=== PATIENT | male | born 1945 | race Caucasian/White ===

== ENCOUNTER → 2018-03-15 08:24 | Outpatient (CLI) | payer MEDICARE, OTHER, SELFPAY ==
[2018-03-15 09:11] LABS: Add Manual Diff / Slide Review NO; Basophils Percent Auto 0.6 % (0-2); Eosinophils Percent Auto 4.6 % (2-4); Hematocrit 40.9 % (41-53); Hemoglobin 14.3 g/dL (13.5-17.5); Lymphocytes Percent Auto 28.1 % (25-40); Mean Corpuscular Hemoglobin 31.2 PG (26-34); Mean Corpuscular Volume 89.3 fL (80-100); Monocytes Percent Auto 7.4 % (3-14); Neutrophils Absolute Auto 3700 /uL (3000-5900); Neutrophils Percent Auto 59.3 % (50-75); Platelet Count 197 X10^3/uL (150-400); Red Blood Cell Count 4.58 X10^6/uL (4.5-5.9); Red Cell Distribution Width 13.3 % (11.6-14.8); White Blood Cell Count 6.2 X10^3/uL (4.5-11.0)
[2018-03-15 09:55] LABS: Alanine Aminotransferase 28 IU/L (21-72); Albumin Globulin Ratio 1.5 (1.0-2.8); Alkaline Phosphatase 67 U/L (38-126); Aspartate Aminotransferase 23 IU/L (17-59); BUN Creatinine Ratio 26.3 (6-22); Bilirubin Total 0.4 mg/dL (0.2-1.3); Calcium 9.3 mg/dL (8.4-10.2); Cholesterol 188 mg/dL (140-199); Estimated Glomerular Filt Rate > 60.0 mL/min (>60); Globulin 2.7 g/dL (1.7-4.1); Glucose 93 mg/dL (80-110); HDL Cholesterol 47 mg/dL (40-60); HEMOLYSIS < 15 (0-50); LDL Cholesterol Calculated 106 mg/dL (<100); Potassium 4.5 mmol/L (3.4-5.1); Sodium 144 mmol/L (137-145); Total Protein 6.7 g/dL (6.3-8.2); Triglycerides 177 mg/dL (35-150)
[2018-03-15 10:22] LABS: TSH w/ Reflex to FT4 2.17 uIU/mL (0.47-4.68)
[2018-03-20 19:17] LABS: Testosterone Free 25.8 pg/mL (30.0-135.0); Testosterone Total 205 ng/dL (250-1100)
== END ==
PROVIDERS: PCP Family Medicine; Visit Provider Family Medicine
DX: R53.83 Other fatigue (principal); E78.1 Pure hyperglyceridemia
CPT/HCPCS: 36415; 80053; 80061; 84402; 84403; 84443; 85025

== ENCOUNTER → 2018-04-12 12:12 | Outpatient (CLI) | payer MEDICARE, OTHER, SELFPAY ==
[2018-04-17 00:09] LABS: Testosterone Total 184 ng/dL (250-1100)
== END ==
PROVIDERS: PCP Family Medicine; Visit Provider Family Medicine
DX: R79.89 Other specified abnormal findings of blood chemistry (principal); R68.82 Decreased libido; R53.83 Other fatigue
CPT/HCPCS: 36415; 84402; 84403

== ENCOUNTER → 2019-01-05 14:27 | Outpatient (CLI) | payer MEDICARE, OTHER, SELFPAY ==
[2019-01-05 15:17] LABS: Add Manual Diff / Slide Review NO; Basophils Absolute Auto 0 /uL (0-100); Basophils Percent Auto 0.4 % (0-2); Eosinophils Absolute Auto 200 /uL (0-450); Eosinophils Percent Auto 2.3 % (2-4); Hematocrit 41.4 % (41-53); Hemoglobin 13.9 g/dL (13.5-17.5); Lymphocytes Absolute Auto 1500 /uL (1100-4500); Lymphocytes Percent Auto 19.1 % (25-40); Mean Corpuscular HGB Conc 33.5 % (30-36); Mean Corpuscular Hemoglobin 30.8 PG (26-34); Monocytes Absolute Auto 600 /uL (0-900); Neutrophils Absolute Auto 5600 /uL (1500-7000); Neutrophils Percent Auto 70.2 % (50-75); Platelet Count 216 X10^3/uL (150-400); Red Cell Distribution Width 12.9 % (11.6-14.8)
[2019-01-05 16:15] LABS: Alanine Aminotransferase 42 IU/L (21-72); Albumin 4.1 g/dL (3.5-5.0); Albumin Globulin Ratio 1.8 (1.0-2.8); Alkaline Phosphatase 74 U/L (38-126); Aspartate Aminotransferase 28 IU/L (17-59); Bilirubin Total 0.3 mg/dL (0.2-1.3); Blood Urea Nitrogen 23 mg/dL (9-20); Calcium 9.1 mg/dL (8.4-10.2); Carbon Dioxide 26 mmol/L (22-32); Chloride 103 mmol/L (98-107); Cholesterol 103 mg/dL (140-199); Estimated Glomerular Filt Rate > 60.0 mL/min (>60); Globulin 2.3 g/dL (1.7-4.1); Glucose 95 mg/dL (80-110); HDL Cholesterol 50 mg/dL (40-60); HEMOLYSIS < 15 (0-50); LDL Cholesterol Calculated 26 mg/dL (<100); Potassium 4.6 mmol/L (3.4-5.1); Sodium 139 mmol/L (137-145); Total Protein 6.4 g/dL (6.3-8.2); Triglycerides 135 mg/dL (35-150)
[2019-01-05 16:48] LABS: Prostate Specific Antigen Scrn 2.99 ng/mL (0.1-4.0)
[2019-01-05 17:02] LABS: Appearance Urine UA CLEAR; Bilirubin Urine UA NEGATIVE (NEGATIVE); Color Urine UA YELLOW; Glucose Urine UA NEGATIVE (Negative); Ketones Urine UA NEGATIVE (NEGATIVE); Leukocyte Esterase Urine UA NEGATIVE (NEGATIVE); Nitrite Urine UA NEGATIVE (Negative); Occult Blood Urine UA NEGATIVE (Negative); Protein Urine UA NEGATIVE (Negative); Urobilinogen Urine UA 0.2 E.U./dL (0.2)
== END ==
PROVIDERS: Visit Provider Family Medicine
DX: I10 Essential (primary) hypertension (principal); R79.89 Other specified abnormal findings of blood chemistry; Z51.81 Encounter for therapeutic drug level monitoring; Z95.5 Presence of coronary angioplasty implant and graft; Z12.5 Encounter for screening for malignant neoplasm of prostate
CPT/HCPCS: 36415; 80053; 80061; 81003; 84403; 84443; 85025; G0103

== ENCOUNTER → 2019-07-21 16:14 | Outpatient (ROUT) | payer MEDICARE, OTHER, SELFPAY ==
[2019-07-21 16:45] LABS: Prolactin 7.7 ng/mL (3.7-17.9)
== END ==
PROVIDERS: Visit Provider Internal Medicine
DX: E29.1 Testicular hypofunction (principal); Z12.5 Encounter for screening for malignant neoplasm of prostate
CPT/HCPCS: 84146; 84153; 84403; G0103

== ENCOUNTER → 2019-12-17 11:07 | Outpatient (CLI) | payer MEDICARE, OTHER, SELFPAY ==
--- NOTE | 2019-12-17 11:09 | DI.RAD.S_ITS ---
PROCEDURE: XR CHEST 2V INDICATIONS: cough x2 weeks, h/o CAD, r/o pneumonia/CHF TECHNIQUE: 2 views of the chest were acquired. COMPARISON: [facility], , CHEST 2 VIEW, 03/05/2016, 9:47. FINDINGS: Surgical changes and devices: None. Lungs and pleura: Linear areas of consolidation at the bilateral lung bases probably represent atelectasis. No convincing pulmonary consolidation is evident. No pleural effusions or pneumothorax. Mediastinum: Mediastinal contours are normal. Heart size is normal. Bones and chest wall: No suspicious bony abnormalities. Soft tissues appear unremarkable. IMPRESSION: Probable bibasilar atelectasis/scarring. No convincing pneumonia. Dictated by: Gil Danielle M.D. on 12/17/2019 at 10:29 Approved by: Gil Danielle M.D. on 12/17/2019 at 10:29
== END ==
PROVIDERS: Referring Provider Physician Assistant; Visit Provider Physician Assistant
DX: R05 Cough (principal)
CPT/HCPCS: 71046

== ENCOUNTER → 2020-02-22 14:23 | Outpatient (CLI) | payer MEDICARE, OTHER, SELFPAY ==
--- NOTE | 2020-02-22 14:29 | DI.RAD.S_ITS ---
PROCEDURE: XR CHEST 2V INDICATIONS: SHORTNESS OF BREATH TECHNIQUE: 2 views of the chest were acquired. COMPARISON: [facility], CR, XR CHEST 1VW (PORTABLE), 04/06/2016, 14:28. [facility], CR, CHEST 2 VIEW, 03/05/2016, 9:47. [facility], CR, XR CHEST 2V, 12/17/2019, 11:03. FINDINGS: Surgical changes and devices: None. Lungs and pleura: Lungs are clear. No pleural effusions or pneumothorax. Right hemidiaphragm eventration. Mediastinum: Mediastinal contours are normal. Heart size is normal. Bones and chest wall: No suspicious bony abnormalities. Soft tissues appear unremarkable. IMPRESSION: No acute cardiopulmonary disease. Dictated by: Terry Rosas M.D. on 02/22/2020 at 15:12 Approved by: Terry Rosas M.D. on 02/22/2020 at 15:14
== END ==
PROVIDERS: PCP Internal Medicine; Referring Provider Student in an Organized Health Care Education/Training Program; Visit Provider Student in an Organized Health Care Education/Training Program
DX: J20.9 Acute bronchitis, unspecified (principal); R06.02 Shortness of breath
CPT/HCPCS: 71046

== ENCOUNTER → 2020-05-03 18:52 | Outpatient (ROUT) | payer MEDICARE, OTHER, SELFPAY ==
[2020-05-03 19:08] LABS: Aspartate Aminotransferase 53 IU/L (17-59); BUN Creatinine Ratio 16.7 (6-22); Blood Urea Nitrogen 18 mg/dL (9-20); Calcium 9.1 mg/dL (8.4-10.2); Carbon Dioxide 25 mmol/L (22-32); Chloride 105 mmol/L (98-107); Cholesterol 121 mg/dL (140-199); Estimated Glomerular Filt Rate > 60.0 mL/min (>60); Glucose 92 mg/dL (80-110); HDL Cholesterol 53 mg/dL (40-60); HEMOLYSIS 23 (0-50); LDL Cholesterol Calculated 9 mg/dL (<100); Potassium 4.4 mmol/L (3.4-5.1); Sodium 138 mmol/L (137-145); Triglycerides 294 mg/dL (35-150)
[2020-05-03 19:09] LABS: Hemoglobin A1C% w Est Avg Glu 5.1 % (4.0-6.0)
[2020-05-03 19:38] LABS: Prostate Specific Antigen 3.42 ng/mL (0.10-4.00)
== END ==
PROVIDERS: PCP Internal Medicine; Visit Provider Internal Medicine
DX: I10 Essential (primary) hypertension (principal); E78.2 Mixed hyperlipidemia; R73.01 Impaired fasting glucose; E29.1 Testicular hypofunction
CPT/HCPCS: 80048; 80061; 83036; 84153; 84450

== ENCOUNTER → 2020-07-27 09:48 | Outpatient (CLI) | payer MEDICARE, OTHER, SELFPAY ==
[2020-07-28 22:36] LABS: COVID19 Sendout Not Detected (Not Detect)
== END ==
PROVIDERS: PCP Internal Medicine; Visit Provider Physician Assistant
DX: Z11.59 Encounter for screening for other viral diseases (principal)
CPT/HCPCS: 87635

== ENCOUNTER 2020-07-30 06:59 | Day surgery (SDC) | payer MEDICARE, OTHER, SELFPAY ==
[2020-07-30] MEDS: PROPARACAINE 0.5% OPHTH SOL 2 DROPS EYE-OP (07:34)
[2020-07-30] MEDS: CATARACT EYE COMPOUND (10 DROPS/SYRINGE) 3 DROPS EYE-OP (07:35)
[2020-07-30 07:37] VITALS: BP 146/83; PULSE 72; RESP 20; TEMP 36.7; O2SAT 98; BMI 30.3
--- NOTE | 2020-07-30 08:09 | P.OP_ITS ---
Operative Date/Time/Diagnoses Pre-op diagnosis: Nuclear Cataract Left eye Post-op diagnosis: same Procedure & Clinicians Same procedure as scheduled: Yes Surgeon: Stef Miller Anesthesia Type: MAC +/- and Sedation Operative Notes Procedure in detail: Patient brought to the operating suite. Tetracaine drops placed in the left eye. Patient was prepped and draped in sterile manner. Wire lid speculum was placed in the eye. Betadine drops were placed on the eye. This was irrigated. Lidocaine jelly was placed on the eye. A paracentesis port was created with a side-port blade. 0.1 mL 1% preservative free lidocaine was injected into the anterior chamber. The anterior chamber was deepened with viscoelastic. 2.6 mm keratome was used to create a temporal clear corneal incision. Cystotome and Utrata forceps were used to create continuous tear capsulorrhexis. Balanced salt solution was used to hydro dissect the nucleus. The phacoemulsification handpiece was inserted and the nucleus was removed using the stop and chop technique. The irrigation aspiration handpiece was inserted and the remaining cortex was removed. The iris was floppy and miotic. Anteri or chamber was deepened with viscoelastic. An Calix ZCB00 intraocular lens with a power of 20.5 was injected into the capsular bag. Irrigation aspiration handpiece was inserted and the remaining viscoelastic was removed. Incision was hydrated with balanced salt solution and found to be leak free with pressure with Weck-Angelica sponges. 0.1 mL Vigamox injected anterior chamber. 0.3 mL Kenalog 10 mg was injected subconjunctivally. Lid speculum was removed. The patient left the operating room in excellent condition. Complications: none Post-operative Condition: stable Disposition: same day surgery
--- NOTE | 2020-07-30 08:09 | PM.PREOP ---
Pre-operative Note Interval Note History & Physical reviewed/Exam performed by Physician: Yes Changes to H&P: No
[2020-07-30] MEDS: TRIAMCINOLONE 50 MG/5 ML VIAL INJ (08:42)
[2020-07-30] MEDS: PHENYLEPHRINE/LIDOCAINE VIAL (OR) 0.2 ML EYE-OP (08:42)
[2020-07-30] MEDS: MOXIFLOXACIN INJ 5 MG/ML VIAL EYE-OP (08:42)
[2020-07-30] MEDS: TETRACAINE 0.5% OPHTH DROPS 4 ML 2 DROPS EYE-OP (08:43)
[2020-07-30] MEDS: LIDOCAINE JELLY 2% 5 ML 1 APPLIC TOP (08:43)
[2020-07-30] MEDS: CHONDROIDTIN/SOD HYALURONATE 1.05 ML SYRINGE INTRAOCULA (08:43)
[2020-07-30] MEDS: BALANCED SALT IRRIG SOLN NO.2 500 ML, EPINEPHrine 1 MG IRR (08:43)
[2020-07-30 09:04] VITALS: BP 138/75; PULSE 67; RESP 16; TEMP 36.2; O2SAT 97
== END 2020-07-30 09:20 | disposition home or self-care (01) ==
LOC: OR 07:01
PROVIDERS: PCP Internal Medicine; Referring Provider Internal Medicine; Visit Provider Ophthalmology
PROC: (CPT 66984; principal; 2020-07-30 08:15)
DX: H25.12 Age-related nuclear cataract, left eye (principal); I10 Essential (primary) hypertension
CPT/HCPCS: 66984; J0171; J2250; J3010; J3301

== ENCOUNTER → 2020-08-10 09:32 | Outpatient (CLI) | payer MEDICARE, OTHER, SELFPAY ==
[2020-08-12 05:59] LABS: COVID19 Sendout Not Detected (Not Detect)
== END ==
PROVIDERS: PCP Internal Medicine; Visit Provider Physician Assistant
DX: Z01.812 Encounter for preprocedural laboratory examination (principal)
CPT/HCPCS: 87635

== ENCOUNTER 2020-08-13 07:56 | Day surgery (SDC) | payer MEDICARE, OTHER, SELFPAY ==
[2020-08-13] MEDS: PROPARACAINE 0.5% OPHTH SOL 2 DROPS EYE-OP (09:11)
[2020-08-13 09:15] VITALS: BP 149/74; PULSE 67; RESP 14; TEMP 36.4; O2SAT 98
[2020-08-13] MEDS: CATARACT EYE COMPOUND (10 DROPS/SYRINGE) 3 DROPS EYE-OP (09:16)
[2020-08-13 09:17] VITALS: BMI 33.3
--- NOTE | 2020-08-13 10:32 | PM.PREOP ---
Pre-operative Note Interval Note History & Physical reviewed/Exam performed by Physician: Yes Changes to H&P: No
--- NOTE | 2020-08-13 10:32 | PM.OP.1 ---
Operative Date/Time/Diagnoses Pre-op diagnosis: Nuclear cataract right eye Procedure & Clinicians Procedure: Cataract Surgery Same procedure as scheduled: Yes Surgeon: Stef Miller Anesthesia Type: MAC +/- and Sedation Operative Notes Procedure in detail: Patient brought to the operating suite. Tetracaine drops placed in the right eye. Patient was prepped and draped in sterile manner. Wire lid speculum was placed in the eye. Betadine drops were placed on the eye. This was irrigated. Lidocaine jelly was placed on the eye. A paracentesis port was created with a side-port blade. 0.1 mL 1% preservative free lidocaine was injected into the anterior chamber. The anterior chamber was deepened with viscoelastic. 2.6 mm keratome was used to create a temporal clear corneal incision. Cystotome and Utrata forceps were used to create continuous tear capsulorrhexis. Balanced salt solution was used to hydro dissect the nucleus. The phacoemulsification handpiece was inserted and the nucleus was removed using the stop and chop technique. The irrigation aspiration handpiece was inserted and the remaining cortex was removed. Anterior chamber was deepened with viscoelastic. An Calix ZCB00 intraocular lens with a power of 20.0 was injected into the capsular bag. Irrigation aspiration handpiece was inserted and the remaining viscoelastic was removed. Incision was hydrated with balanced salt solution and found to be leak free with pressure with Weck-Angelica sponges. 0.1 mL Vigamox injected anterior chamber. 0.3 mL Kenalog 10 mg was injected subconjunctivally. Lid speculum was removed. The patient left the operating room in excellent condition. Complications: none Post-operative Condition: stable Disposition: same day surgery
[2020-08-13] MEDS: MOXIFLOXACIN INJ 5 MG/ML VIAL EYE-OP (11:01)
[2020-08-13] MEDS: PHENYLEPHRINE/LIDOCAINE VIAL (OR) 0.2 ML EYE-OP (11:01)
[2020-08-13] MEDS: TRIAMCINOLONE 50 MG/5 ML VIAL INJ (11:02)
[2020-08-13] MEDS: BALANCED SALT IRRIG SOLN NO.2 500 ML, EPINEPHrine 1 MG IRR (11:02)
[2020-08-13] MEDS: CHONDROIDTIN/SOD HYALURONATE 1.05 ML SYRINGE INTRAOCULA (11:02)
[2020-08-13] MEDS: LIDOCAINE JELLY 2% 5 ML 1 APPLIC TOP (11:02)
[2020-08-13] MEDS: TETRACAINE 0.5% OPHTH DROPS 4 ML 2 DROPS EYE-OP (11:02)
[2020-08-13 11:14] VITALS: BP 130/78; PULSE 68; RESP 24; TEMP 36.6; O2SAT 97
== END 2020-08-13 11:25 | disposition home or self-care (01) ==
PROVIDERS: PCP Internal Medicine; Referring Provider Internal Medicine; Visit Provider Ophthalmology
PROC: (CPT 66984; principal; 2020-08-13 09:45)
DX: H25.11 Age-related nuclear cataract, right eye (principal); I10 Essential (primary) hypertension
CPT/HCPCS: 66984; J0171; J2250; J3301

== ENCOUNTER → 2020-10-15 19:40 | Outpatient (ROUT) | payer MEDICARE, OTHER, SELFPAY ==
[2020-10-15 19:53] LABS: Add Manual Diff / Slide Review NO; Basophils Absolute Auto 0 /uL (0-100); Basophils Percent Auto 0.7 % (0-2); Eosinophils Absolute Auto 300 /uL (0-450); Hematocrit 44.5 % (41-53); Hemoglobin 14.9 g/dL (13.5-17.5); Lymphocytes Absolute Auto 1700 /uL (1100-4500); Lymphocytes Percent Auto 26.6 % (25-40); Mean Corpuscular HGB Conc 33.4 % (30-36); Mean Corpuscular Hemoglobin 31.5 PG (26-34); Mean Corpuscular Volume 94.3 fL (80-100); Monocytes Absolute Auto 700 /uL (0-900); Monocytes Percent Auto 10.5 % (3-14); Neutrophils Absolute Auto 3700 /uL (1500-7000); Neutrophils Percent Auto 58.2 % (50-75); Platelet Count 225 X10^3/uL (150-400); Red Blood Cell Count 4.72 X10^6/uL (4.5-5.9); Red Cell Distribution Width 12.9 % (11.6-14.8); White Blood Cell Count 6.4 X10^3/uL (4.5-11.0)
[2020-10-15 20:20] LABS: BUN Creatinine Ratio 24.4 (6-22); Blood Urea Nitrogen 22 mg/dL (9-20); Calcium 9.3 mg/dL (8.4-10.2); Carbon Dioxide 29 mmol/L (22-32); Chloride 104 mmol/L (98-107); Estimated Glomerular Filt Rate > 60.0 mL/min (>60); Glucose 101 mg/dL (80-110); HEMOLYSIS < 15 (0-50); Potassium 4.7 mmol/L (3.4-5.1); Sodium 137 mmol/L (137-145)
[2020-10-15 20:33] LABS: TSH w/ Reflex to FT4 2.91 uIU/mL (0.47-4.68)
[2020-10-15 20:46] LABS: Prostate Specific Antigen 2.85 ng/mL (0.10-4.00)
[2020-10-15 20:48] LABS: Testosterone 34.5 ng/dL (71.8-623)
== END ==
PROVIDERS: PCP Internal Medicine; Visit Provider Internal Medicine
DX: I10 Essential (primary) hypertension (principal); E29.1 Testicular hypofunction; N40.1 Benign prostatic hyperplasia with lower urinary tract symptoms
CPT/HCPCS: 80048; 84153; 84403; 84443; 85025

== ENCOUNTER → 2021-01-13 12:49 | Outpatient (CLI) | payer MEDICARE, OTHER, SELFPAY ==
--- NOTE | 2021-01-13 | DI.RAD.S_ITS ---
PROCEDURE: XR HIP W PEL IF DONE LT 2V INDICATIONS: LEFT HIP PAIN TECHNIQUE: AP pelvis with lateral view(s) of the left hip(s). COMPARISON: None. FINDINGS: Bones: No fractures or dislocations. There is symmetric mild hip joint space narrowing. Pelvic ring appears intact. No suspicious bony lesions. Soft tissues: The visualized bowel gas pattern is normal. No suspicious soft tissue calcifications. 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 No prior trauma found. Source of asymmetric symptoms is not seen Dictated by: Yony Hyman M.D. on 01/13/2021 at 13:52 Approved by: Yony Hyman M.D. on 01/13/2021 at 13:52
== END ==
PROVIDERS: PCP Internal Medicine; Referring Provider Internal Medicine; Visit Provider Internal Medicine
DX: M76.32 Iliotibial band syndrome, left leg (principal); M25.552 Pain in left hip
CPT/HCPCS: 73502

== ENCOUNTER → 2021-02-21 09:17 | Outpatient (CLI) | payer MEDICARE, OTHER, SELFPAY ==
--- NOTE | 2021-02-21 09:19 | DI.CT.S_ITS ---
PROCEDURE: CT SINUS SCREEN WO CON INDICATIONS: Cough, Dysphagia, Postnasal drip, Chronic pansinusitis TECHNIQUE: Noncontrast 3.0 mm axial images acquired from the frontal sinuses to the mid-sella, with coronal and sagittal reformats. For radiation dose reduction, the following was used: automated exposure control, adjustment of mA and/or kV according to patient size. COMPARISON: [facility], CT, BRAIN W/O CONTRAST, 01/09/2011, 12:04. FINDINGS: Image quality: Excellent. Maxillary Sinuses: No bony remodeling or destruction. Sinuses are clear. Ethmoid Air Cells: No bony remodeling or destruction. Sinuses are clear. Sphenoid Sinuses: No bony remodeling or destruction. Sinuses are clear. Frontal Sinuses: No bony remodeling or destruction. Sinuses are clear. The left frontal sinus is relatively poorly developed. Ostiomeatal Complexes: Ostiomeatal complexes are patent. No Geovany cells. Miscellaneous: Visualized intra-orbital contents are normal. No franci bullosa or paradoxical turbinate curvature. No nasal septal deviation. IMPRESSION: No active paranasal sinus disease is seen. Dictated by: Ulises Fuentes M.D. on 02/21/2021 at 10:10 Approved by: Ulises Fuentes M.D. on 02/21/2021 at 10:13
--- NOTE | 2021-02-21 09:19 | DI.RAD.S_ITS ---
PROCEDURE: FL BARIUM SWALLOW W AIR COMPARISON: None. INDICATIONS: Cough,Dysphagia,Postnasal drip,Chronic pansinusiti FINDINGS: Both air contrast and single contrast technique were utilized. There is no esophageal mass or stricture, but a small sliding hiatal hernia was observed and this is associated with mild episodic and elicited gastroesophageal reflux. The patient did report episodes of reflux including acid sensation in his mouth. IMPRESSION: Small sliding hiatal hernia, episodic mild gastroesophageal reflux. From the patient's report there is symptomatology suggestive of a greater degree of reflux at times. No stricture or mass is identified. Dictated by: Yony Hyman M.D. on 02/21/2021 at 11:11 Approved by: Yony Hyman M.D. on 02/21/2021 at 11:16
== END ==
PROVIDERS: PCP Internal Medicine; Referring Provider Otolaryngology; Visit Provider Otolaryngology
DX: R13.10 Dysphagia, unspecified (principal); K44.9 Diaphragmatic hernia without obstruction or gangrene; K21.9 Gastro-esophageal reflux disease without esophagitis; J32.4 Chronic pansinusitis; R05 Cough; R09.82 Postnasal drip
CPT/HCPCS: 70486; 74221

== ENCOUNTER → 2022-03-27 09:17 | Outpatient (CLI) | payer MEDICARE, OTHER, SELFPAY ==
--- NOTE | 2022-03-27 09:19 | DI.RAD.S_ITS ---
PROCEDURE: XR RIBS RT MIN 3V W CXR 1V INDICATIONS: Right rib pain, fall TECHNIQUE: 2 views of the left ribs were acquired, along with a single view chest. COMPARISON: [facility], , XR CHEST 2V, 02/22/2020, 14:23. FINDINGS: Surgical changes and devices: Clips in the left abdomen. Abdominal wall mesh. Bones and chest wall: Minimal undulation of the right lateral 11th rib. No suspicious bony lesions. Overlying soft tissues appear unremarkable. Lungs and pleura: No pleural effusions or pneumothorax. Bibasilar hazy opacity. Mediastinum: Mediastinal contours appear normal. Heart size is normal. IMPRESSION: Minimal undulation of the right lateral 11th rib. Suspect nondisplaced fracture. Bibasilar hazy opacity. Favor atelectasis. Dictated by: Jaxon Tai M.D. on 03/27/2022 at 10:14 Approved by: Jaxon Tai M.D. on 03/27/2022 at 10:20
== END ==
PROVIDERS: PCP Internal Medicine; Referring Provider Physician Assistant; Visit Provider Physician Assistant
DX: S29.9XXA Unspecified injury of thorax, initial encounter (principal); W19.XXXA Unspecified fall, initial encounter
CPT/HCPCS: 71101

== ENCOUNTER → 2022-06-09 10:57 | Outpatient (CLI) | payer MEDICARE, OTHER, SELFPAY ==
[2022-06-09 12:32] LABS: Hematocrit 39.6 % (41-53); Hemoglobin 13.8 g/dL (13.5-17.5); Mean Corpuscular HGB Conc 34.9 % (30-36); Mean Corpuscular Hemoglobin 32.6 PG (26-34); Mean Corpuscular Volume 93.2 fL (80-100); Platelet Count 202 X10^3/uL (150-400); Red Blood Cell Count 4.24 X10^6/uL (4.5-5.9); Red Cell Distribution Width 14.1 % (11.6-14.8); White Blood Cell Count 6.5 X10^3/uL (4.5-11.0)
[2022-06-09 13:00] LABS: Alanine Aminotransferase 63 IU/L (<50); Albumin 3.9 g/dL (3.5-5.0); Albumin Globulin Ratio 1.6 (1.0-2.8); Alkaline Phosphatase 66 U/L (38-126); Aspartate Aminotransferase 55 IU/L (17-59); BUN Creatinine Ratio 22.8 (6-22); Bilirubin Total 0.7 mg/dL (0.2-1.3); Blood Urea Nitrogen 18 mg/dL (9-20); Carbon Dioxide 26 mmol/L (22-32); Chloride 105 mmol/L (98-107); Cholesterol 125 mg/dL (140-199); Estimated Glomerular Filt Rate > 60 mL/min (>60); Globulin 2.4 g/dL (1.7-4.1); Glucose 92 mg/dL (80-110); HDL Cholesterol 60 mg/dL (40-60); HEMOLYSIS < 15 (0-50); LDL Cholesterol Calculated 28 mg/dL (<100); Potassium 4.4 mmol/L (3.4-5.1); Sodium 138 mmol/L (137-145); Total Protein 6.3 g/dL (6.3-8.2); Triglycerides 183 mg/dL (35-150)
[2022-06-09 13:19] LABS: TSH w/ Reflex to FT4 1.33 uIU/mL (0.47-4.68)
[2022-06-09 13:24] LABS: Testosterone 60.9 ng/dL (71.8-623)
== END ==
PROVIDERS: PCP Internal Medicine; Referring Provider Internal Medicine; Visit Provider Internal Medicine
DX: E78.2 Mixed hyperlipidemia (principal); N40.1 Benign prostatic hyperplasia with lower urinary tract symptoms; I10 Essential (primary) hypertension; I25.10 Atherosclerotic heart disease of native coronary artery without angina pectoris; R79.89 Other specified abnormal findings of blood chemistry
CPT/HCPCS: 36415; 80053; 80061; 84153; 84403; 84443; 85027

== ENCOUNTER → 2022-06-15 10:54 | Outpatient (CLI) | payer MEDICARE, OTHER, SELFPAY ==
[2022-06-15 13:29] LABS: Occult Blood 1 Negative (Negative); Occult Blood 2 Negative (Negative); Occult Blood 3 Negative (Negative)
== END ==
PROVIDERS: PCP Internal Medicine; Referring Provider Internal Medicine; Visit Provider Internal Medicine
DX: E78.2 Mixed hyperlipidemia (principal); I10 Essential (primary) hypertension; I25.10 Atherosclerotic heart disease of native coronary artery without angina pectoris; N40.1 Benign prostatic hyperplasia with lower urinary tract symptoms; R79.89 Other specified abnormal findings of blood chemistry
CPT/HCPCS: 82270

== ENCOUNTER → 2022-09-07 16:20 | Outpatient (CLI) | payer MEDICARE, OTHER, SELFPAY ==
[2022-09-07 17:31] LABS: Testosterone 25.2 ng/dL (71.8-623)
[2022-09-07 17:48] LABS: Vitamin B12 356 pg/mL (239-931)
== END ==
PROVIDERS: PCP Internal Medicine; Referring Provider Internal Medicine; Visit Provider Internal Medicine
DX: E53.8 Deficiency of other specified B group vitamins (principal); R79.89 Other specified abnormal findings of blood chemistry
CPT/HCPCS: 36415; 82607; 84403

== ENCOUNTER → 2023-01-12 12:49 | Outpatient (CLI) | payer MEDICARE, OTHER, SELFPAY ==
[2023-01-12 13:11] LABS: Add Manual Diff / Slide Review NO; Basophils Absolute Auto 100 /uL (0-100); Basophils Percent Auto 0.7 % (0-2); Eosinophils Absolute Auto 100 /uL (0-450); Eosinophils Percent Auto 0.9 % (2-4); Hematocrit 43.1 % (41-53); Hemoglobin 14.4 g/dL (13.5-17.5); Lymphocytes Absolute Auto 1200 /uL (1100-4500); Lymphocytes Percent Auto 13.4 % (25-40); Mean Corpuscular HGB Conc 33.5 % (30-36); Mean Corpuscular Hemoglobin 31.8 PG (26-34); Mean Corpuscular Volume 94.8 fL (80-100); Monocytes Absolute Auto 700 /uL (0-900); Neutrophils Absolute Auto 7000 /uL (1500-7000); Platelet Count 207 X10^3/uL (150-400); Red Blood Cell Count 4.55 X10^6/uL (4.5-5.9); Red Cell Distribution Width 13.4 % (11.6-14.8); White Blood Cell Count 9.1 X10^3/uL (4.5-11.0)
[2023-01-12 13:49] LABS: BUN Creatinine Ratio 29.3 (6-22); Blood Urea Nitrogen 22 mg/dL (9-20); Calcium 8.8 mg/dL (8.4-10.2); Carbon Dioxide 24 mmol/L (22-32); Chloride 104 mmol/L (98-107); Cholesterol 145 mg/dL (140-199); Estimated Glomerular Filt Rate > 60 mL/min (>60); Glucose 98 mg/dL (80-110); HDL Cholesterol 76 mg/dL (40-60); HEMOLYSIS < 15 (0-50); LDL Cholesterol Calculated 32 mg/dL (<100); Potassium 4.3 mmol/L (3.4-5.1); Sodium 143 mmol/L (137-145); Triglycerides 186 mg/dL (35-150)
== END ==
PROVIDERS: PCP Internal Medicine; Referring Provider Internal Medicine Cardiovascular Disease; Visit Provider Internal Medicine Cardiovascular Disease
DX: E78.5 Hyperlipidemia, unspecified (principal); I25.10 Atherosclerotic heart disease of native coronary artery without angina pectoris
CPT/HCPCS: 36415; 80048; 80061; 85025

== ENCOUNTER → 2023-03-26 14:50 | Outpatient (CLI) | payer MEDICARE, OTHER, SELFPAY ==
[2023-03-26 15:34] LABS: Add Manual Diff / Slide Review NO; Basophils Absolute Auto 0 /uL (0-100); Basophils Percent Auto 0.6 % (0-2); Eosinophils Absolute Auto 100 /uL (0-450); Eosinophils Percent Auto 1.1 % (2-4); Hematocrit 39.2 % (41-53); Hemoglobin 13.6 g/dL (13.5-17.5); Lymphocytes Absolute Auto 1300 /uL (1100-4500); Lymphocytes Percent Auto 15.7 % (25-40); Mean Corpuscular HGB Conc 34.7 % (30-36); Mean Corpuscular Hemoglobin 32.8 PG (26-34); Mean Corpuscular Volume 94.4 fL (80-100); Monocytes Absolute Auto 800 /uL (0-900); Neutrophils Absolute Auto 6000 /uL (1500-7000); Neutrophils Percent Auto 72.6 % (50-75); Platelet Count 195 X10^3/uL (150-400); Red Blood Cell Count 4.15 X10^6/uL (4.5-5.9); Red Cell Distribution Width 13.5 % (11.6-14.8); White Blood Cell Count 8.2 X10^3/uL (4.5-11.0)
[2023-03-26 17:22] LABS: Testosterone 149 ng/dL (71.8-623)
[2023-03-26 17:39] LABS: Vitamin B12 839 pg/mL (239-931)
== END ==
PROVIDERS: PCP Internal Medicine; Referring Provider Internal Medicine; Visit Provider Internal Medicine
DX: I10 Essential (primary) hypertension (principal); E53.8 Deficiency of other specified B group vitamins; R79.89 Other specified abnormal findings of blood chemistry; N40.1 Benign prostatic hyperplasia with lower urinary tract symptoms
CPT/HCPCS: 36415; 82607; 84153; 84403; 85025

== ENCOUNTER → 2023-05-11 10:19 | Outpatient (CLI) | payer MEDICARE, OTHER, SELFPAY ==
[2023-05-11 12:19] LABS: Alanine Aminotransferase 37 IU/L (<50); Aspartate Aminotransferase 33 IU/L (17-59); BUN Creatinine Ratio 24.3 (6-22); Blood Urea Nitrogen 18 mg/dL (9-20); Estimated Glomerular Filt Rate > 60 mL/min (>60)
== END ==
PROVIDERS: PCP Internal Medicine; Referring Provider Physician Assistant Medical; Visit Provider Physician Assistant Medical
DX: B35.1 Tinea unguium (principal)
CPT/HCPCS: 36415; 82565; 84450; 84460; 84520

== ENCOUNTER → 2023-09-08 12:09 | Outpatient (CLI) | payer MEDICARE, OTHER, SELFPAY ==
[2023-09-08 13:20] LABS: Hematocrit 43.5 % (41-53); Hemoglobin 14.5 g/dL (13.5-17.5); Mean Corpuscular HGB Conc 33.3 % (30-36); Mean Corpuscular Hemoglobin 32.6 PG (26-34); Mean Corpuscular Volume 97.7 fL (80-100); Platelet Count 219 X10^3/uL (150-400); Red Blood Cell Count 4.45 X10^6/uL (4.5-5.9); Red Cell Distribution Width 13.8 % (11.6-14.8); White Blood Cell Count 8.4 X10^3/uL (4.5-11.0)
[2023-09-08 13:37] LABS: Alanine Aminotransferase 49 IU/L (<50); Albumin 3.9 g/dL (3.5-5.0); Albumin Globulin Ratio 1.4 (1.0-2.8); Alkaline Phosphatase 58 U/L (38-126); Aspartate Aminotransferase 49 IU/L (17-59); Bilirubin Total 0.7 mg/dL (0.2-1.3); Blood Urea Nitrogen 22 mg/dL (9-20); Calcium 9.4 mg/dL (8.4-10.2); Carbon Dioxide 29 mmol/L (22-32); Chloride 104 mmol/L (98-107); Cholesterol 113 mg/dL (140-199); Estimated Glomerular Filt Rate > 60 mL/min (>60); Globulin 2.8 g/dL (1.7-4.1); Glucose 101 mg/dL (80-110); HDL Cholesterol 57 mg/dL (40-60); HEMOLYSIS < 15 (0-50); LDL Cholesterol Calculated 36 mg/dL (<100); Potassium 4.9 mmol/L (3.4-5.1); Sodium 138 mmol/L (137-145); Total Protein 6.7 g/dL (6.3-8.2); Triglycerides 99 mg/dL (35-150)
[2023-09-08 14:07] LABS: Prostate Specific Antigen 6.33 ng/mL (0.10-4.00)
[2023-09-08 14:08] LABS: TSH w/ Reflex to FT4 0.81 uIU/mL (0.47-4.68)
[2023-09-08 14:09] LABS: Testosterone 526 ng/dL (71.8-623)
== END ==
PROVIDERS: PCP Internal Medicine; Referring Provider Internal Medicine; Visit Provider Internal Medicine
DX: E78.2 Mixed hyperlipidemia (principal); N40.1 Benign prostatic hyperplasia with lower urinary tract symptoms; I10 Essential (primary) hypertension; I25.10 Atherosclerotic heart disease of native coronary artery without angina pectoris; R79.89 Other specified abnormal findings of blood chemistry
CPT/HCPCS: 36415; 80053; 80061; 84153; 84403; 84443; 85027

== ENCOUNTER → 2023-09-23 10:43 | Outpatient (CLI) | payer MEDICARE, OTHER, SELFPAY ==
[2023-09-25 08:02] LABS: PSA, Total 4.2 ng/mL (0.0-4.0)
== END ==
PROVIDERS: PCP Internal Medicine; Referring Provider Internal Medicine; Visit Provider Internal Medicine
DX: R97.20 Elevated prostate specific antigen [PSA] (principal)
CPT/HCPCS: 36415; 84153; 84154

== ENCOUNTER 2023-10-08 11:11 | Emergency (ER) | payer MEDICARE, OTHER, SELFPAY ==
[2023-10-08 11:24] VITALS: BP 138/67; PULSE 70; RESP 17; TEMP 37.1; O2SAT 97; BMI 35.9
--- NOTE | 2023-10-08 11:32 | ED_ITS ---
HPI - Male Genitourinary <Miguel Mcdonald PA-C - Last Filed: 10/08/23 15:35> General Chief complaint: Urogenital-Male Stated complaint: blood in urine Time Seen by Provider: 10/08/23 11:32 Source: patient Mode of arrival: Family Vehicle History of Present Illness HPI Narrative: This is a 78-year-old male presents emergency department due to painless hematuria for the last 2 days. States that it is entirely gross blood in his not appear to be what she urine in it. He denies any dysuria or urinary frequency. Reports some right flank pain as well. Denies any nausea, vomiting, dizziness, or any other concerning signs or symptoms. No trauma to the area. History of prostate surgery about 5 years ago and [place]. History of right kidney surgery about 30 years ago as well. Seen in the walk-in clinic just prior to arrival as noted in the record review below. Related Data Home Medications Medication Instructions Recorded Confirmed [stool softener] 1 PO QDAY ##0 08/26/17 10/08/23 aspirin 81 mg chewable tablet 1 tab PO QDAY ##0 08/26/17 10/08/23 cholecalciferol (vitamin D3) 100 4,000 unit PO DAILY 12/17/19 10/08/23 mcg (4,000 unit) capsule vitamin A-vitamin C-vit E-min 1 tab PO DAILY 12/17/19 10/08/23 tablet finasteride 5 mg tablet 5 mg PO DAILY 05/14/21 10/08/23 amlodipine 5 mg tablet 5 mg PO DAILY 03/05/22 10/08/23 losartan 50 mg tablet 50 mg PO DAILY 03/05/22 10/08/23 cyclobenzaprine 5 mg tablet 5 mg PO BEDTIME 03/27/22 10/08/23 ketoconazole 2 % shampoo topical 08/30/23 10/08/23 duloxetine 20 mg capsule,delayed 20 mg PO BID 09/08/23 10/08/23 release Previous Rx's Medication Instructions Recorded atorvastatin 40 mg tablet 40 mg PO DAILY #90 tabs 12/30/18 gabapentin 300 mg capsule 300 mg PO BID #180 caps 12/24/22 testosterone cypionate 100 mg/mL 100 mg IM .[id number] low 03/26/23 intramuscular oil testosterone #10 mL (Depo-Testosterone) tamsulosin 0.4 mg capsule (Flomax) 0.4 mg PO BID #180 caps 06/02/23 Disabled Parking Permit 1 ea Not Applicable DAILY #1 ea 09/08/23 Parking Permit... #1 ea 09/08/23 metoprolol succinate 50 mg 50 mg PO BID #180 tabs 09/08/23 tablet,extended release 24 hr Allergies Allergy/AdvReac Type Severity Reaction Status Date / Time No Known Drug Allergies Allergy Verified 10/08/23 11:30 Review of Systems <Miguel Mcdonald PA-C - Last Filed: 10/08/23 15:35> Review of Systems Narrative: GENERAL: Denies chills, fatigue, malaise, fever, sweats. HEENT: Denies sinus pain, ear pain, sore throat, difficulty swallowing, dizziness. RESPIRATORY: Denies dyspnea, cough, wheezing, hemoptysis, sputum. CARDIOVASCULAR: Denies chest pain, palpitations, orthopnea, edema, GASTROINTESTINAL: Denies nausea, vomiting, abdominal pain, diarrhea, constipation, melena. : Reports hematuria Denies dysuria, frequency, incontinence, , urinary retention. MUSCULOSKELETAL: denies weakness, joint pain, or bony pain SKIN: Denies rash, skin lesions, or other NEUROLOGIC: Denies weakness, headache, numbness, change in speech, confusion, seizures, incoordination. PSYCHIATRIC: No concerning psychosocial issues. 12 point review of systems is negative except for those stated above Patient History <Miguel Mcdonald PA-C - Last Filed: 10/08/23 15:35> Medical History Elevated PSA Benign essential tremor Venous (peripheral) insufficiency B12 deficiency Obstructive sleep apnea Generalized anxiety disorder Mixed hyperlipidemia Essential hypertension Low testosterone in male Primary insomnia (01/07/16) Social History household members: spouse Smoking Status: Former smoker Smoking Status: Former smoker tobacco type: cigarettes alcohol intake frequency: 0-2 drinks per day Substance Use Type: marijuana Exam <Miguel Mcdonald PA-C - Last Filed: 10/08/23 15:35> Narrative Exam Narrative: GENERAL: Well-developed patient, in mild distress. HEAD: Atraumatic. Normocephalic. EYES: Pupils equal round and reactive. Extraocular motions intact. No scleral icterus. No injection or drainage. ENT: Nose without bleeding, purulent drainage. Throat without erythema, tonsillar hypertrophy or exudate. Airway patent. NECK: Trachea midline. Non tender CARDIOVASCULAR: Regular rate and rhythm without murmurs, gallops, or rubs. RESPIRATORY: Clear to auscultation. Breath sounds equal bilaterally. No wheezes, rales, or rhonchi. GASTROINTESTINAL: Abdomen soft, non-tender, nondistended. EXTREMITIES: No edema or joint tenderness. BACK: Nontender without deformity or crepitance. No flank tenderness. NEURO: AOx3. SKIN: No rash or erythema of visible areas Initial Vital Signs Initial Vital Signs: Vital Signs Temperature 98.7 F 10/08/23 11:24 Pulse Rate 70 10/08/23 11:24 Respiratory Rate 17 10/08/23 11:24 Blood Pressure 138/67 10/08/23 11:24 Pulse Oximetry 97 10/08/23 11:24 Oxygen Delivery Method Room Air 10/08/23 11:24 <Vale Justin DO - Last Filed: 10/08/23 15:52> Initial Vital Signs Initial Vital Signs: Vital Signs Temperature 98.7 F 10/08/23 11:24 Pulse Rate 70 10/08/23 11:24 Respiratory Rate 17 10/08/23 11:24 Blood Pressure 138/67 10/08/23 11:24 Pulse Oximetry 97 10/08/23 11:24 Oxygen Delivery Method Room Air 10/08/23 11:24 Course <Miguel Mcdonald PA-C - Last Filed: 10/08/23 15:35> Orders Ordered: ED Orders 10/08/23 10:30 Urinalysis and Microscopic Stat 10/08/23 11:50 CBC Auto Diff [Complete Blood Count AUTO DIFF] Stat CMP [Comprehensive Metabolic Panel] Stat 10/08/23 12:51 CT abdomen pelvis w con Stat Consultations Consultation #1: [id number]: Discussed case with on-call urologist, Dr. Jesus, who reviewed imaging and stated that it was most likely a clot. Recommended outpatient Urology follow up. The right renal calculi and possible staghorn calculus were also noted but stated that no emergent treatment was needed. Vital Signs Vital signs: Vital Signs - 8 hr 10/08/23 11:24 10/08/23 13:40 10/08/23 15:37 Temperature 98.7 F Pulse Rate 70 63 94 H Respiratory Rate 17 16 12 Blood Pressure 138/67 154/75 H 122/86 Pulse Oximetry 97 97 94 Oxygen Delivery Method Room Air Room Air Room Air <Vale Justin DO - Last Filed: 10/08/23 15:52> Orders Ordered: ED Orders 10/08/23 10:30 Urinalysis and Microscopic Stat 10/08/23 11:50 CBC Auto Diff [Complete Blood Count AUTO DIFF] Stat CMP [Comprehensive Metabolic Panel] Stat 10/08/23 12:51 CT abdomen pelvis w con Stat Vital Signs Vital signs: Vital Signs - 8 hr 10/08/23 11:24 10/08/23 13:40 10/08/23 15:37 Temperature 98.7 F Pulse Rate 70 63 94 H Respiratory Rate 17 16 12 Blood Pressure 138/67 154/75 H 122/86 Pulse Oximetry 97 97 94 Oxygen Delivery Method Room Air Room Air Room Air MDM - Male Genitourinary <Miguel Mcdonald PA-C - Last Filed: 10/08/23 15:35> Lab Data 10/08/23 11:50 10/08/23 11:50 Labs: Lab Results 10/08/23 10/08/23 Range/Units 10:30 11:50 WBC 9.4 (4.5-11.0) X10^3/uL RBC 4.16 L (4.5-5.9) X10^6/uL Hgb 13.6 (13.5-17.5) g/dL Hct 39.8 L (41-53) % MCV 95.5 (80-100) fL MCH 32.6 (26-34) PG MCHC 34.2 (30-36) % RDW 12.8 (11.6-14.8) % Plt Count 221 (150-400) X10^3/uL Neut % (Auto) 72.9 (50-75) % Lymph % (Auto) 14.9 L (25-40) % [place] % (Auto) 8.4 (3-14) % Eos % (Auto) 3.2 (2-4) % Baso % (Auto) 0.6 (0-2) % Neut # (Auto) 6900 (9346-7427) /uL Lymph # (Auto) 1400 (0132-6690) /uL [place] # (Auto) 800 (0-900) /uL Eos # (Auto) 300 (0-450) /uL Baso # (Auto) 100 (0-100) /uL Sodium 137 (137-145) mmol/L Potassium 4.7 (3.4-5.1) mmol/L Chloride 103 (98-107) mmol/L Carbon Dioxide 27 (22-32) mmol/L BUN 18 (9-20) mg/dL Creatinine 0.85 (0.66-1.25) mg/dL Estimated GFR > 60 (>60) mL/min BUN/Creatinine Ratio 21.2 (6-22) Glucose 112 H (80-110) mg/dL Calcium 8.7 (8.4-10.2) mg/dL Total Bilirubin 0.6 (0.2-1.3) mg/dL AST 44 (17-59) IU/L ALT 48 (<50) IU/L Alkaline Phosphatase 65 (38-126) U/L Total Protein 6.6 (6.3-8.2) g/dL Albumin 3.8 (3.5-5.0) g/dL Globulin 2.8 (1.7-4.1) g/dL Albumin/Globulin Ratio 1.4 (1.0-2.8) Urine Color Red Urine Appearance Turbid Urine pH TNP Ur Specific [place] TNP Urine Protein TNP Urine Glucose (UA) TNP Urine Ketones TNP Urine Occult Blood TNP Urine Nitrate TNP Urine Bilirubin TNP Urine Urobilinogen TNP Ur Leukocyte Esterase TNP Urine RBC >100/hpf H (0-5/HPF) Urine WBC None seen (0-5/HPF) Ur Squamous Epith Cells None seen (0-5/HPF) Urine Bacteria None seen (None) Ur Culture Indicated? Cult not indicated Imaging Data CT scan - abdomen/pelvis: Radiologist's Impression: [address] [address] [address] Scan Report Signed Patient: Silas Ram MR#: [id number] : 1945 Acct:[id number] Age/Sex: 78 / M Date of Service: 10/08/23 Loc: ED Accession Number: [id number] Procedure: CT abdomen pelvis w con Ordering Provider: Miguel Mcdonald P.A-C PROCEDURE: CT ABDOMEN PELVIS W CON INDICATIONS: Gross hematuria TECHNIQUE: After the administration of intravenous contrast, axial sections acquired from the lung bases to the pubic symphysis. Coronal and sagittal reformats were performed. For radiation dose reduction, the following was used: automated exposure control, adjustment of mA and/or kV according to patient size. COMPARISON: None. FINDINGS: Image quality: Excellent. Lung bases: Unremarkable. Heart: No significant findings. ABDOMEN: Liver: Unremarkable. Gallbladder: Unremarkable. Biliary ducts: Unremarkable. Pancreas: Unremarkable. Spleen: Unremarkable. Adrenal Glands: Unremarkable. Kidneys and Ureters: The right renal collecting system contains several small subcentimeter calculi, including clustered multiple calculi at the lower 3rd collecting system which are nonobstructive. This area may contain a staghorn calculus centered in the collecting system, with radiodensity measuring up to 1061 Hounsfield units, and with maximal dimensions up to 1.6 by 1.2 cm. . Stomach and Bowel: Stomach, small bowel loops, and colon are unremarkable. Peritoneum: No abnormal intraperitoneal fluid. No free air. Ventral Wall: No hernias. Abdominal Nodes: No retroperitoneal or mesenteric adenopathy by size criteria. Vessels: Aorta and inferior vena cava are normal in size. PELVIS: Pelvic Organs: Unremarkable. Bladder: The bladder contains a rounded masslike structure measuring up to 7.7 cm transverse and 6.1 cm AP, with a craniocaudad length of 9.5 cm. . Pelvic Nodes: No enlarged lymph nodes. Miscellaneous: No hernias are seen. Bones: Unremarkable. IMPRESSION: No urinary tract obstruction found. Multiple right renal calculi including possible staghorn calculus discussed above measuring up to 1.6 x 1.2 cm at the lower 3rd collecting system of the right kidney. The bladder is abnormal and contains a complex structure that could represent an unusual manifestation of clot or tumor. As noted it measures up to 7.7 x 6.1 x 9.5 cm. This structure requires follow-up to possibly include pre-and post-contrast imaging either by CT or MRI. Also, if it resolves by ultrasound follow-up that would imply the structure was in fact a clot. Dictated by: Yony Hyman M.D. on 10/08/2023 at 13:55 Approved by: Yony Hyman M.D. on 10/08/2023 at 14:00 [facility] Narrative Medical decision making narrative: MDM * differential diagnosis includes but not limited to UTI, bladder injury, urethral injury, kidney injury * Prior records reviewed: Patient was seen at the walk-in clinic just prior to arrival. Two days of painless gross hematuria. History of kidney stones. History of prostate surgery and takes tamsulosin. Hematuria started yesterday morning. Denied any fevers or chills. History of surgery to his right kidney due to his ureter being kinked. Smoker in his 30s. His urine was too sick in the walk-in clinic and unable to do a point of care dip. Sent to the emergency department. * My lab interpretation: CBC showed no evidence of anemia or leukocytosis. Creatinine within normal limits. * My imgaing interpretation: CT showed a complex structure in the bladder most likely representing a clot. Also noted multiple right renal calculi with a possible staghorn calculus. * Clinical Decision Rules/Scores evaluated: None * Independent discussions with: None ED Course: This is a 78-year-old male presenting to the emergency department due to 2 days of painless hematuria. Lab work reassuring. No evidence of any kidney abnormalities, anemia, or infection. CT abdomen and pelvis ordered which showed multiple right renal calculi as well as a possible staghorn calculus as well as a suspected clot after discussing with on-call urologist Dr. Jesus. Recommended outpatient follow up and no emergent treatment needed. Referral was discussed and patient preferred to find urologist themselves through their insurance. UA showed no evidence of any kind of infection. Shared Decision Making: Discussed plan with the patient who is comfortable with the plan. Social Considerations: None Disposition: Discharged to home <Vale Justin, - Last Filed: 10/08/23 15:52> Lab Data Labs: Lab Results 10/08/23 10/08/23 Range/Units 10:30 11:50 WBC 9.4 (4.5-11.0) X10^3/uL RBC 4.16 L (4.5-5.9) X10^6/uL Hgb 13.6 (13.5-17.5) g/dL Hct 39.8 L (41-53) % MCV 95.5 (80-100) fL MCH 32.6 (26-34) PG MCHC 34.2 (30-36) % RDW 12.8 (11.6-14.8) % Plt Count 221 (150-400) X10^3/uL Neut % (Auto) 72.9 (50-75) % Lymph % (Auto) 14.9 L (25-40) % [place] % (Auto) 8.4 (3-14) % Eos % (Auto) 3.2 (2-4) % Baso % (Auto) 0.6 (0-2) % Neut # (Auto) 6900 (2734-3671) /uL Lymph # (Auto) 1400 (2204-8284) /uL [place] # (Auto) 800 (0-900) /uL Eos # (Auto) 300 (0-450) /uL Baso # (Auto) 100 (0-100) /uL Sodium 137 (137-145) mmol/L Potassium 4.7 (3.4-5.1) mmol/L Chloride 103 (98-107) mmol/L Carbon Dioxide 27 (22-32) mmol/L BUN 18 (9-20) mg/dL Creatinine 0.85 (0.66-1.25) mg/dL Estimated GFR > 60 (>60) mL/min BUN/Creatinine Ratio 21.2 (6-22) Glucose 112 H (80-110) mg/dL Calcium 8.7 (8.4-10.2) mg/dL Total Bilirubin 0.6 (0.2-1.3) mg/dL AST 44 (17-59) IU/L ALT 48 (<50) IU/L Alkaline Phosphatase 65 (38-126) U/L Total Protein 6.6 (6.3-8.2) g/dL Albumin 3.8 (3.5-5.0) g/dL Globulin 2.8 (1.7-4.1) g/dL Albumin/Globulin Ratio 1.4 (1.0-2.8) Urine Color Red Urine Appearance Turbid Urine pH TNP Ur Specific [place] TNP Urine Protein TNP Urine Glucose (UA) TNP Urine Ketones TNP Urine Occult Blood TNP Urine Nitrate TNP Urine Bilirubin TNP Urine Urobilinogen TNP Ur Leukocyte Esterase TNP Urine RBC >100/hpf H (0-5/HPF) Urine WBC None seen (0-5/HPF) Ur Squamous Epith Cells None seen (0-5/HPF) Urine Bacteria None seen (None) Ur Culture Indicated? Cult not indicated Discharge Plan Departure Patient Disposition: Home Clinical Impression: Hematuria Instructions: DI for Hematuria Activity Restrictions/Additional Instructions: Thank you for coming to the [facility] Emergency Department today. As we discussed, I spoke with our urologist who states that this is most likely a clot sitting in your bladder which is causing you to urinate the blood. He recommends finding a urologist to follow up with for further investigation and care. There was no evidence of infection in your urine and your lab work all today was reassuring. I hope you feel better soon. Please follow up with your primary care provider within a week if your symptoms continue. If you do not have a primary care provider please contact the [facility] Resource line at [phone]. They will ask some questions about your medical history and help you get set up with a provider in the community. Prescriptions: No Action atorvastatin 40 mg tablet 40 mg PO DAILY Qty: 90 3RF vitamin A-vitamin C-vit E-min Tablet 1 tab PO DAILY cholecalciferol (vitamin D3) 4,000 unit capsule 4,000 unit PO DAILY cyclobenzaprine 5 mg tablet 5 mg PO BEDTIME aspirin 81 MG tablet,chewable 1 tab PO QDAY Qty: 0 [stool softener] 1 PO QDAY Qty: 0 tamsulosin [Flomax] 0.4 mg capsule 0.4 mg PO BID Qty: 180 3RF amlodipine 5 mg tablet 5 mg PO DAILY Patient Comments: take 1 tablet by mouth every morning losartan 50 mg tablet 50 mg PO DAILY Patient Comments: take 1 tablet by mouth every evening testosterone cypionate [Depo-Testosterone] 100 mg/mL oil 100 mg IM .[id number] Qty: 10 5RF duloxetine 20 mg capsule,delayed release(DR/EC) 20 mg PO BID (DME) Parking Permit... See Rx Instructions .Route .MEDSUPPLY Qty: 1 0RF Rx Instructions: As directed Disabled Parking Permit 1 ea Not Applicable DAILY Qty: 1 0RF metoprolol succinate 50 mg tablet extended release 24 hr 50 mg PO BID Qty: 180 3RF gabapentin 300 mg capsule 300 mg PO BID Qty: 180 3RF ketoconazole 2 % shampoo topical finasteride 5 mg tablet 5 mg PO DAILY Referrals: Humble Johansen MD [Primary Care Provider] - Stand Alone Forms: Patient Portal/API ED Sign-out <Vale Botnick, DO - Last Filed: 10/08/23 15:52> Cosign ED Attending Cosignature Attestation: I was available for consultation.
[2023-10-08 11:57] LABS: Appearance Urine UA TURBID; RBC Urine >100/HPF (0-5/HPF)
[2023-10-08 11:58] LABS: Bacteria Urine None Seen; Color Urine UA RED; Squamous Epithelial Cell Urine None Seen (0-5/HPF); WBC Urine None Seen (0-5/HPF)
[2023-10-08 11:58] LABS: Add Manual Diff / Slide Review NO; Basophils Absolute Auto 100 /uL (0-100); Basophils Percent Auto 0.6 % (0-2); Eosinophils Absolute Auto 300 /uL (0-450); Eosinophils Percent Auto 3.2 % (2-4); Hematocrit 39.8 % (41-53); Hemoglobin 13.6 g/dL (13.5-17.5); Lymphocytes Absolute Auto 1400 /uL (1100-4500); Lymphocytes Percent Auto 14.9 % (25-40); Mean Corpuscular HGB Conc 34.2 % (30-36); Mean Corpuscular Hemoglobin 32.6 PG (26-34); Mean Corpuscular Volume 95.5 fL (80-100); Monocytes Absolute Auto 800 /uL (0-900); Monocytes Percent Auto 8.4 % (3-14); Neutrophils Absolute Auto 6900 /uL (1500-7000); Neutrophils Percent Auto 72.9 % (50-75); Platelet Count 221 X10^3/uL (150-400); Red Blood Cell Count 4.16 X10^6/uL (4.5-5.9); Red Cell Distribution Width 12.8 % (11.6-14.8); White Blood Cell Count 9.4 X10^3/uL (4.5-11.0)
[2023-10-08 11:59] LABS: Culture Indicated Urine Cult Not Indicated
[2023-10-08 12:25] LABS: Alanine Aminotransferase 48 IU/L (<50); Albumin 3.8 g/dL (3.5-5.0); Albumin Globulin Ratio 1.4 (1.0-2.8); Alkaline Phosphatase 65 U/L (38-126); Aspartate Aminotransferase 44 IU/L (17-59); BUN Creatinine Ratio 21.2 (6-22); Bilirubin Total 0.6 mg/dL (0.2-1.3); Blood Urea Nitrogen 18 mg/dL (9-20); Calcium 8.7 mg/dL (8.4-10.2); Carbon Dioxide 27 mmol/L (22-32); Chloride 103 mmol/L (98-107); Estimated Glomerular Filt Rate > 60 mL/min (>60); Globulin 2.8 g/dL (1.7-4.1); Glucose 112 mg/dL (80-110); HEMOLYSIS < 15 (0-50); Potassium 4.7 mmol/L (3.4-5.1); Sodium 137 mmol/L (137-145); Total Protein 6.6 g/dL (6.3-8.2)
--- NOTE | 2023-10-08 12:51 | DI.CT.S_ITS ---
PROCEDURE: CT ABDOMEN PELVIS W CON INDICATIONS: Gross hematuria TECHNIQUE: After the administration of intravenous contrast, axial sections acquired from the lung bases to the pubic symphysis. Coronal and sagittal reformats were performed. For radiation dose reduction, the following was used: automated exposure control, adjustment of mA and/or kV according to patient size. COMPARISON: None. FINDINGS: Image quality: Excellent. Lung bases: Unremarkable. Heart: No significant findings. ABDOMEN: Liver: Unremarkable. Gallbladder: Unremarkable. Biliary ducts: Unremarkable. Pancreas: Unremarkable. Spleen: Unremarkable. Adrenal Glands: Unremarkable. Kidneys and Ureters: The right renal collecting system contains several small subcentimeter calculi, including clustered multiple calculi at the lower 3rd collecting system which are nonobstructive. This area may contain a staghorn calculus centered in the collecting system, with radiodensity measuring up to 1061 Hounsfield units, and with maximal dimensions up to 1.6 by 1.2 cm. . Stomach and Bowel: Stomach, small bowel loops, and colon are unremarkable. Peritoneum: No abnormal intraperitoneal fluid. No free air. Ventral Wall: No hernias. Abdominal Nodes: No retroperitoneal or mesenteric adenopathy by size criteria. Vessels: Aorta and inferior vena cava are normal in size. PELVIS: Pelvic Organs: Unremarkable. Bladder: The bladder contains a rounded masslike structure measuring up to 7.7 cm transverse and 6.1 cm AP, with a craniocaudad length of 9.5 cm. . Pelvic Nodes: No enlarged lymph nodes. Miscellaneous: No hernias are seen. Bones: Unremarkable. IMPRESSION: No urinary tract obstruction found. Multiple right renal calculi including possible staghorn calculus discussed above measuring up to 1.6 x 1.2 cm at the lower 3rd collecting system of the right kidney. The bladder is abnormal and contains a complex structure that could represent an unusual manifestation of clot or tumor. As noted it measures up to 7.7 x 6.1 x 9.5 cm. This structure requires follow-up to possibly include pre-and post-contrast imaging either by CT or MRI. Also, if it resolves by ultrasound follow-up that would imply the structure was in fact a clot. Dictated by: Yony Hyman M.D. on 10/08/2023 at 13:55 Approved by: Yony Hyman M.D. on 10/08/2023 at 14:00
[2023-10-08 13:40] VITALS: BP 154/75; PULSE 63; RESP 16; O2SAT 97
[2023-10-08 15:37] VITALS: BP 122/86; PULSE 94; RESP 12; O2SAT 94
== END 2023-10-08 15:37 | disposition home or self-care (01) ==
PROVIDERS: Emergency Provider Physician Assistant Medical; PCP Internal Medicine
DX: R31.9 Hematuria, unspecified (principal)
CPT/HCPCS: 74177; 80053; 81001; 85025; 99283; 99284; Q9967

== ENCOUNTER 2024-01-04 18:50 | Emergency (ER) | payer MEDICARE, OTHER, SELFPAY ==
[2024-01-04 19:34] VITALS: BP 120/68; PULSE 69; RESP 17; TEMP 36.3; O2SAT 95; BMI 35.2
--- NOTE | 2024-01-04 19:38 | DI.RAD.S_ITS ---
PROCEDURE: XR HAND LT MIN 3V INDICATIONS: laceration, fall, r/o foreign bodies TECHNIQUE: 3 views of the hand acquired. COMPARISON: None. FINDINGS: Bones: No acute fractures or dislocations. Carpal bones are normally aligned. No suspicious bony lesions. Mild osteoarthrosis. Soft tissues: No suspicious soft tissue calcifications. IMPRESSION: No acute osseous abnormality. No radiopaque foreign body. Approved by: Mario Zhao M.D. on 01/04/2024 at 20:37
--- NOTE | 2024-01-04 19:41 | DI.CT.S_ITS ---
PROCEDURE: CT CERVICAL SPINE WO CON INDICATIONS: fall, landed on face TECHNIQUE: Noncontrast 3 mm thick sections acquired from the skull base to the T4 level. Sagittal and coronal reformats were then constructed. For radiation dose reduction, the following was used: automated exposure control, adjustment of mA and/or kV according to patient size. COMPARISON: None. FINDINGS: Image quality: Excellent. Bones: No fractures or dislocations. Visualized superior ribs are intact. Multilevel degenerative disc disease and uncovertebral joint and facet hypertrophy are seen throughout the cervical spine. Soft tissues: Prevertebral soft tissues are normal in thickness. No paravertebral hematomas. No apical pneumothoraces. IMPRESSION: No displaced fracture or traumatic subluxation. Approved by: Mario Zhao M.D. on 01/04/2024 at 20:21
--- NOTE | 2024-01-04 19:41 | DI.CT.S_ITS ---
PROCEDURE: CT HEAD/BRAIN WO CON INDICATIONS: fall, landed on face TECHNIQUE: Noncontrast 4.5 mm thick angled axial sections acquired from the foramen magnum to the vertex, with coronal and sagittal reformats. For radiation dose reduction, the following was used: automated exposure control, adjustment of mA and/or kV according to patient size. COMPARISON: None. FINDINGS: Image quality: Diagnostic. CSF spaces: Basal cisterns are patent. No extra-axial fluid collections. The ventricles are symmetric in size and shape. Brain: No acute intracranial hemorrhage or mass effect. There is cerebral volume loss for age, with resultant ventricular and sulcal prominence. There are periventricular and deep white matter chronic small vessel ischemic changes. There is intracranial internal carotid artery atherosclerosis. Skull and face: Calvarium and visualized facial bones appear intact, without suspicious lesions. Sinuses: Visualized sinuses and mastoids are clear. IMPRESSION: No acute intracranial pathology. Approved by: Mario Zhao M.D. on 01/04/2024 at 20:19
--- NOTE | 2024-01-04 19:41 | DI.CT.S_ITS ---
PROCEDURE: CT FACIAL BONES WO [facility] INDICATIONS: fall, landed on face TECHNIQUE: Noncontrast 2.5 mm thick axial images acquired from the mandible through the frontal sinuses, with coronal and sagittal reformatting. For radiation dose reduction, the following was used: automated exposure control, adjustment of mA and/or kV according to patient size. COMPARISON: [facility], CT, CT SINUS SCREEN WO [facility], 02/21/2021, 10:10 FINDINGS: Image quality: Excellent. Bones and teeth: Orbital sam are intact. Sinus sam show no fracture or deformity. Nasal bones and septum are intact. Visualized portions of the mandible demonstrate no fractures or subluxation. Zygomatic arches are intact. Pterygoid plates are intact. Visualized portions of the skull base and auditory canals are intact. Sinuses: Paranasal sinuses are aerated, without fluid levels, mucosal thickening, or mucoceles. Mastoid air cells are aerated. Soft tissues: Mild soft tissue edema in the anterior nose No enlarged lymph nodes. No soft tissue lacerations or debris. Vascular: Visualized vascular structures appear normal in the absence of contrast. Bony vascular foramina and canals are intact. IMPRESSION: No acute facial fracture. Approved by: Mario Zhao M.D. on 01/04/2024 at 20:25
--- NOTE | 2024-01-04 22:54 | ED.FALL ---
HPI - Fall General Chief Complaint: Fall Stated Complaint: GLF to face bleeding/ Time Seen by Provider: 01/04/24 22:51 Source: patient Mode of arrival: Ambulatory History of Present Illness HPI Narrative: Patient is a melo 78-year-old male who has a history he of difficulty walking. He reports that he and his go to [place] every winter he picked up some medication it was a combination of an NSAID meloxicam and possibly steroid. did not have the box with them today. However with this medication that daily has helped him to walk more. Today he is walking with a walking sticks when he tripped and fell landing on his face and cutting his left hand. No loss of consciousness no nausea or vomiting. He has some laceration across his forehead nose and left hand. Denies any hip pain or any other injury. Not on anticoagulation or antiplatelet medication. Related Data Home Medications Medication Instructions Recorded Confirmed [stool softener] 1 PO QDAY ##0 08/26/17 12/20/23 aspirin 81 mg chewable tablet 1 tab PO QDAY ##0 08/26/17 12/20/23 cholecalciferol (vitamin D3) 100 4,000 unit PO DAILY 12/17/19 12/20/23 mcg (4,000 unit) capsule vitamin A-vitamin C-vit E-min 1 tab PO DAILY 12/17/19 12/20/23 tablet finasteride 5 mg tablet 5 mg PO DAILY 05/14/21 12/20/23 amlodipine 5 mg tablet 5 mg PO DAILY 03/05/22 12/20/23 losartan 50 mg tablet 50 mg PO DAILY 03/05/22 12/20/23 cyclobenzaprine 5 mg tablet 5 mg PO BEDTIME 03/27/22 12/20/23 ketoconazole 2 % shampoo topical 08/30/23 12/20/23 Previous Rx's Medication Instructions Recorded atorvastatin 40 mg tablet 40 mg PO DAILY #90 tabs 12/30/18 Disabled Parking Permit 1 ea Not Applicable DAILY #1 ea 09/08/23 Parking Permit... #1 ea 09/08/23 fluticasone propionate 50 1 spray intranasal DAILY #16 grams 11/04/23 mcg/actuation nasal spray,suspension (Flonase Allergy Relief) benzonatate 200 mg capsule 200 mg PO TID PRN cough #30 caps 12/20/23 duloxetine 20 mg capsule,delayed 20 mg PO BID #180 caps 01/03/24 release gabapentin 300 mg capsule 300 mg PO BID #180 caps 01/03/24 metoprolol succinate 50 mg 50 mg PO BID #180 tabs 01/03/24 tablet,extended release 24 hr tamsulosin 0.4 mg capsule (Flomax) 0.4 mg PO BID #180 caps 01/03/24 testosterone cypionate 100 mg/mL 100 mg IM .[id number] low 01/04/24 intramuscular oil testosterone #10 mL (Depo-Testosterone) Allergies Allergy/AdvReac Type Severity Reaction Status Date / Time No Known Drug Allergies Allergy Verified 01/04/24 19:34 Patient History Medical History Elevated PSA Benign essential tremor Venous (peripheral) insufficiency B12 deficiency Obstructive sleep apnea Generalized anxiety disorder Mixed hyperlipidemia Essential hypertension Low testosterone in male Primary insomnia (01/07/16) Social History household members: spouse Smoking Status: Former smoker Smoking Status: Former smoker tobacco type: cigarettes alcohol intake frequency: 0-2 drinks per day Substance Use Type: marijuana Exam Initial Vital Signs Initial Vital Signs: Vital Signs Temperature 97.4 F L 01/04/24 19:34 Pulse Rate 69 01/04/24 19:34 Respiratory Rate 17 01/04/24 19:34 Blood Pressure 120/68 01/04/24 19:34 Pulse Oximetry 95 01/04/24 19:34 Oxygen Delivery Method Room Air 01/04/24 19:34 GENERAL: Alert pleasant 78-year-old male HEENT: Head atraumatic,EOMI, pupils reactive, face symmetric, moist mucous membranes Neck no vertebral tenderness no step-off CARDIOVASCULAR: Regular rate and rhythm without murmurs, rubs or gallops. RESPIRATORY: Breath sounds equal bilaterally, no wheezes rales or rhonchi. ABDOMEN: Soft, nontender. Normoactive bowel sounds all 4 quadrants. No guarding or rebound. EXTREMITIES: Normal range of motion, no clubbing or edema. Neurovascularly intact Left 5th finger eminence has 3 cm flap like laceration. Full range of motion of left little finger. It is more in the palmar lateral side. NEUROLOGICAL: Alert and oriented x4. SKIN: Superficial laceration across forehead between eyebrows. Good skin approximation. Nasal abrasion, left hand laceration 3 cm Procedures Laceration Repair Laceration 1: Site: hand Side (If applicable): left Size (cm): 3 Description: linear Depth: simple, single layer Local Anesthetic: lidocaine 1% Amount of anesthesia used (mL): 2 Pre-repair: wound explored, irrigated extensively and deep structures intact Skin layer closed with: nylon Skin layer suture size: 5-0 Number of sutures: 3 Laceration 2: Site: face (forehead) Size (cm): 4 Description: linear Pre-repair: wound explored and irrigated extensively Skin layer closed with: steri-strips Course Orders Ordered: ED Orders 01/04/24 19:38 XR hand LT min 3V Stat 01/04/24 19:41 CT cervical spine wo con Stat CT facial bones wo con Stat CT head/brain wo con Stat Discontinued Medications Diphtheria/Tetanus/Acell Pertussis (Tet,Diph,Pertuss(Acell),Vac/Pf 0.5 Ml Syringe) 0.5 ml IM .ONCE ONE Stop: 01/04/24 22:32 Last Admin: 01/04/24 23:35 Dose: 0.5 ml Documented By: NEYMAR Vital Signs Vital signs: Vital Signs - 8 hr 01/04/24 23:21 01/04/24 23:30 01/04/24 23:54 Pulse Rate 61 61 64 Respiratory Rate 17 20 18 Blood Pressure 152/78 H Pulse Oximetry 96 95 96 Oxygen Delivery Method Room Air MDM - Fall Imaging Data Extremity x-ray #1: Radiologist's Impression: PROCEDURE: XR HAND LT MIN 3V INDICATIONS: laceration, fall, r/o foreign bodies TECHNIQUE: 3 views of the hand acquired. COMPARISON: None. FINDINGS: Bones: No acute fractures or dislocations. Carpal bones are normally aligned. No suspicious bony lesions. Mild osteoarthrosis. Soft tissues: No suspicious soft tissue calcifications. IMPRESSION: No acute osseous abnormality. No radiopaque foreign body. Approved by: Mario Zhao M.D. on 01/04/2024 at 20:37 CT - cervical spine: Radiologist's Impression: PROCEDURE: CT CERVICAL SPINE WO CON INDICATIONS: fall, landed on face TECHNIQUE: Noncontrast 3 mm thick sections acquired from the skull base to the T4 level. Sagittal and coronal reformats were then constructed. For radiation dose reduction, the following was used: automated exposure control, adjustment of mA and/or kV according to patient size. COMPARISON: None. FINDINGS: Image quality: Excellent. Bones: No fractures or dislocations. Visualized superior ribs are intact. Multilevel degenerative disc disease and uncovertebral joint and facet hypertrophy are seen throughout the cervical spine. Soft tissues: Prevertebral soft tissues are normal in thickness. No paravertebral hematomas. No apical pneumothoraces. IMPRESSION: No displaced fracture or traumatic subluxation. Approved by: Mario Zhao M.D. on 01/04/2024 at 20:21 CT scan - head: Radiologist's Impression: PROCEDURE: CT HEAD/BRAIN WO CON INDICATIONS: fall, landed on face TECHNIQUE: Noncontrast 4.5 mm thick angled axial sections acquired from the foramen magnum to the vertex, with coronal and sagittal reformats. For radiation dose reduction, the following was used: automated exposure control, adjustment of mA and/or kV according to patient size. COMPARISON: None. FINDINGS: Image quality: Diagnostic. CSF spaces: Basal cisterns are patent. No extra-axial fluid collections. The ventricles are symmetric in size and shape. Brain: No acute intracranial hemorrhage or mass effect. There is cerebral volume loss for age, with resultant ventricular and sulcal prominence. There are periventricular and deep white matter chronic small vessel ischemic changes. There is intracranial internal carotid artery atherosclerosis. Skull and face: Calvarium and visualized facial bones appear intact, without suspicious lesions. Sinuses: Visualized sinuses and mastoids are clear. IMPRESSION: No acute intracranial pathology. Approved by: Mario Zhao M.D. on 01/04/2024 at 20:19 CT face: Radiologist's Impression: PROCEDURE: CT FACIAL BONES WO CON INDICATIONS: fall, landed on face TECHNIQUE: Noncontrast 2.5 mm thick axial images acquired from the mandible through the frontal sinuses, with coronal and sagittal reformatting. For radiation dose reduction, the following was used: automated exposure control, adjustment of mA and/or kV according to patient size. COMPARISON: [facility], CT, CT SINUS SCREEN WO CON, 02/21/2021, 10:10 FINDINGS: Image quality: Excellent. Bones and teeth: Orbital sam are intact. Sinus sam show no fracture or deformity. Nasal bones and septum are intact. Visualized portions of the mandible demonstrate no fractures or subluxation. Zygomatic arches are intact. Pterygoid plates are intact. Visualized portions of the skull base and auditory canals are intact. Sinuses: Paranasal sinuses are aerated, without fluid levels, mucosal thickening, or mucoceles. Mastoid air cells are aerated. Soft tissues: Mild soft tissue edema in the anterior nose No enlarged lymph nodes. No soft tissue lacerations or debris. Vascular: Visualized vascular structures appear normal in the absence of contrast. Bony vascular foramina and canals are intact. IMPRESSION: No acute facial fracture. Approved by: Mario Zhao M.D. on 01/04/2024 at 20:25 MDM Narrative Medical decision making narrative: Patient 78-year-old male who presents today with mechanical fall. He has a left hand laceration along with some facial superficial lacerations. He had imaging done CT head neck and facial without any sort of fracture intracranial hemorrhage. Hand laceration as easily repaired with sutures facial lacerations easily repaired with Steri-Strips. Discussion with family but when to return to ED. It certainly multiple appointments next week with physician ongoing health issues Discharge Plan Departure Patient Disposition: Home Clinical Impression: Laceration of hand, left Instructions: DI for Laceration Repair -- Complex Activity Restrictions/Additional Instructions: *You have been diagnosed with left hand laceration *What to do: Keep hand clean and dry with soap and water may bathe regularly just no soaking in water. Have sutures removed in about 7 to days. Steri-Strips will fall on their own. Elevate and ice as needed *Continue to take medications as directed Antibiotic ointment over wounds as needed 1-2 times daily *Follow up with your primary care provider in 2-3 days or call [phone] *Return to ER if you should have increasing redness swelling pain or any new, worsening or concerning symptoms Prescriptions: No Action atorvastatin 40 mg tablet 40 mg PO DAILY Qty: 90 3RF vitamin A-vitamin C-vit E-min Tablet 1 tab PO DAILY cholecalciferol (vitamin D3) 4,000 unit capsule 4,000 unit PO DAILY cyclobenzaprine 5 mg tablet 5 mg PO BEDTIME benzonatate 200 mg capsule 200 mg PO TID PRN (Reason: cough) Qty: 30 0RF aspirin 81 MG tablet,chewable 1 tab PO QDAY Qty: 0 [stool softener] 1 PO QDAY Qty: 0 duloxetine 20 mg capsule,delayed release(DR/EC) 20 mg PO BID Qty: 180 3RF gabapentin 300 mg capsule 300 mg PO BID Qty: 180 3RF metoprolol succinate 50 mg tablet extended release 24 hr 50 mg PO BID Qty: 180 3RF tamsulosin [Flomax] 0.4 mg capsule 0.4 mg PO BID Qty: 180 3RF testosterone cypionate [Depo-Testosterone] 100 mg/mL oil 100 mg IM .[id number] Qty: 10 5RF amlodipine 5 mg tablet 5 mg PO DAILY Patient Comments: take 1 tablet by mouth every morning losartan 50 mg tablet 50 mg PO DAILY Patient Comments: take 1 tablet by mouth every evening (DME) Parking Permit... See Rx Instructions .Route .MEDSUPPLY Qty: 1 0RF Rx Instructions: As directed Disabled Parking Permit 1 ea Not Applicable DAILY Qty: 1 0RF ketoconazole 2 % shampoo topical fluticasone propionate [Flonase Allergy Relief] 50 mcg/actuation spray,suspension 1 spray intranasal DAILY Qty: 16 0RF Rx Instructions: administer into each nostril finasteride 5 mg tablet 5 mg PO DAILY Referrals: Humble Johansen MD [Primary Care Provider] - Stand Alone Forms: Patient Portal/API
[2024-01-04 23:21] VITALS: PULSE 61; RESP 17; O2SAT 96
[2024-01-04 23:30] VITALS: PULSE 61; RESP 20; O2SAT 95
[2024-01-04] MEDS: TET,DIPH,PERTUSS(ACELL),VAC/PF 0.5 ML SYRINGE IM (23:35)
[2024-01-04 23:54] VITALS: BP 152/78; PULSE 64; RESP 18; O2SAT 96
== END 2024-01-04 23:52 | disposition home or self-care (01) ==
PROVIDERS: Emergency Provider Emergency Medicine; PCP Internal Medicine
DX: S61.412A Laceration without foreign body of left hand, initial encounter (principal); S01.81XA Laceration without foreign body of other part of head, initial encounter; W01.0XXA Fall on same level from slipping, tripping and stumbling without subsequent striking against object, initial encounter; Z23 Encounter for immunization
CPT/HCPCS: 12002; 70450; 70486; 72125; 73130; 90471; 99283; 99284; 90715

== ENCOUNTER → 2024-02-02 16:35 | Outpatient (CLI) | payer MEDICARE, OTHER, SELFPAY ==
[2024-02-02 17:27] LABS: Add Manual Diff / Slide Review NO; Basophils Absolute Auto 100 /uL (0-100); Basophils Percent Auto 0.7 % (0-2); Eosinophils Absolute Auto 300 /uL (0-450); Eosinophils Percent Auto 3.9 % (2-4); Hematocrit 40.8 % (41-53); Hemoglobin 13.5 g/dL (13.5-17.5); Lymphocytes Absolute Auto 1500 /uL (1100-4500); Lymphocytes Percent Auto 18.5 % (25-40); Mean Corpuscular HGB Conc 33.2 % (30-36); Mean Corpuscular Hemoglobin 32.1 PG (26-34); Mean Corpuscular Volume 96.6 fL (80-100); Monocytes Absolute Auto 800 /uL (0-900); Monocytes Percent Auto 9.5 % (3-14); Neutrophils Absolute Auto 5400 /uL (1500-7000); Neutrophils Percent Auto 67.4 % (50-75); Platelet Count 202 X10^3/uL (150-400); Red Blood Cell Count 4.22 X10^6/uL (4.5-5.9); Red Cell Distribution Width 14.3 % (11.6-14.8)
[2024-02-02 17:52] LABS: BUN Creatinine Ratio 21.3 (6-22); Blood Urea Nitrogen 17 mg/dL (9-20); Calcium 9.4 mg/dL (8.4-10.2); Carbon Dioxide 29 mmol/L (22-32); Chloride 106 mmol/L (98-107); Estimated Glomerular Filt Rate > 60 mL/min (>60); Glucose 97 mg/dL (80-110); HEMOLYSIS < 15 (0-50); Sodium 140 mmol/L (137-145)
[2024-02-02 18:02] LABS: NT-proBNP (BNP-Adult 18+) 75 pg/mL (<450)
== END ==
PROVIDERS: PCP Internal Medicine; Referring Provider Internal Medicine Cardiovascular Disease; Visit Provider Internal Medicine Cardiovascular Disease
DX: R06.09 Other forms of dyspnea (principal)
CPT/HCPCS: 36415; 80048; 83880; 85025

== ENCOUNTER → 2024-04-15 10:48 | Outpatient (CLI) | payer MEDICARE, OTHER, SELFPAY ==
[2024-04-15 11:40] LABS: Hematocrit 40.4 % (41-53); Hemoglobin 13.7 g/dL (13.5-17.5); Mean Corpuscular HGB Conc 34.1 % (30-36); Mean Corpuscular Hemoglobin 32.3 PG (26-34); Mean Corpuscular Volume 94.9 fL (80-100); Platelet Count 182 X10^3/uL (150-400); Red Blood Cell Count 4.25 X10^6/uL (4.5-5.9); White Blood Cell Count 6.9 X10^3/uL (4.5-11.0)
[2024-04-15 12:09] LABS: Alanine Aminotransferase 20 IU/L (<50); Albumin 3.9 g/dL (3.5-5.0); Albumin Globulin Ratio 1.6 (1.0-2.8); Alkaline Phosphatase 65 U/L (38-126); Aspartate Aminotransferase 25 IU/L (17-59); BUN Creatinine Ratio 28.9 (6-22); Bilirubin Total 0.7 mg/dL (0.2-1.3); Blood Urea Nitrogen 24 mg/dL (9-20); Calcium 8.9 mg/dL (8.4-10.2); Carbon Dioxide 27 mmol/L (22-32); Chloride 108 mmol/L (98-107); Estimated Glomerular Filt Rate > 60 mL/min (>60); Globulin 2.5 g/dL (1.7-4.1); Glucose 100 mg/dL (80-110); HEMOLYSIS < 15 (0-50); Potassium 4.6 mmol/L (3.4-5.1); Sodium 140 mmol/L (137-145); Total Protein 6.4 g/dL (6.3-8.2)
[2024-04-15 12:38] LABS: Prostate Specific Antigen 4.01 ng/mL (0.10-4.00)
== END ==
PROVIDERS: PCP Internal Medicine; Referring Provider Internal Medicine; Visit Provider Internal Medicine
DX: R97.20 Elevated prostate specific antigen [PSA] (principal)
CPT/HCPCS: 36415; 80053; 84153; 85027

== ENCOUNTER → 2024-05-05 10:09 | Outpatient (CLI) | payer MEDICARE, OTHER, SELFPAY ==
[2024-05-08 13:36] LABS: Fecal Immunochemical Test Positive (Negative)
== END ==
PROVIDERS: PCP Internal Medicine; Referring Provider Internal Medicine; Visit Provider Internal Medicine
DX: Z85.038 Personal history of other malignant neoplasm of large intestine (principal)
CPT/HCPCS: 82274

== ENCOUNTER 2024-07-11 09:17 | Day surgery (SDC) | payer MEDICARE, OTHER, SELFPAY ==
--- NOTE | 2024-07-11 | PATH_ITS ---
[facility] Accession Number: [id number] No. of containers..01 Tissue . 01 Material submitted: . colon - SIGMOID COLON POLYP . 01 Diagnosis: A. SIGMOID COLON, POLYPECTOMY: Tubular adenoma. [facility] 07/13/2024 1418 Local . 01 Electronically signed: . Bettye Tristan MD, Pathologist NPI- [id number] . 01 Gross description: . Received in formalin with two patient identifiers and sigmoid colon polyp, is a single garcia soft tissue fragment, 0.3 cm in greatest dimension. Submitted in A1. ([id number]) /MRV 07/12/2024 1046 Local . 01 Pathologist provided ICD-10: R19.5 . 01 CPT . 558541 Specimen Comment: A courtesy copy of this report has been sent to [phone] Performed at: [address] [id number] MD Jamar Quintanilla MD Phone: [phone]
[2024-07-11 09:49] VITALS: BP 156/78; PULSE 60; RESP 16; TEMP 36.2; O2SAT 98
[2024-07-11] MEDS: LACTATED RINGERS 1,000 ML 42 ML IV (10:03)
--- NOTE | 2024-07-11 10:14 | P.HP_ITS ---
History of Present Illness History of Present Illness Date Patient Seen: 07/11/24 Time Patient Seen: 10:14 Chief complaint: Dx Colonoscopy w/poss bx Narrative: 79-year-old man history of colon cancer 10 years ago here for diagnostic colonoscopy secondary to a positive fecal immunochemical test. No hematochezia melena or abdominal pain. [facility] Medical History Positive FIT (fecal immunochemical test) Elevated PSA Benign essential tremor Venous (peripheral) insufficiency B12 deficiency Obstructive sleep apnea Generalized anxiety disorder Mixed hyperlipidemia Essential hypertension Low testosterone in male Primary insomnia (01/07/16) Social History marital status: household members: spouse lives independently: Yes occupational status: employed Smoking Status: Former smoker alcohol intake: current substance use type: marijuana Meds Home Medications and Allergies Home Medications Medication Instructions Recorded Confirmed Type [stool softener] 1 PO QDAY ##0 08/26/17 06/01/24 History aspirin 81 mg chewable tablet 1 tab PO QDAY ##0 08/26/17 07/11/24 History atorvastatin 40 mg tablet 40 mg PO DAILY #90 tabs 12/30/18 07/11/24 Rx cholecalciferol (vitamin D3) 100 4,000 unit PO DAILY 12/17/19 06/01/24 History mcg (4,000 unit) capsule losartan 50 mg tablet 50 mg PO DAILY 03/05/22 07/11/24 History Parking Permit... #1 ea 09/08/23 06/01/24 Rx fluticasone propionate 50 1 spray intranasal DAILY #16 grams 11/04/23 06/01/24 Rx mcg/actuation nasal spray,suspension (Flonase Allergy Relief) gabapentin 300 mg capsule 300 mg PO BID #180 caps 01/03/24 07/11/24 Rx tamsulosin 0.4 mg capsule (Flomax) 0.4 mg PO BID #180 caps 01/03/24 07/11/24 Rx testosterone cypionate 100 mg/mL 100 mg IM .[id number] low 01/04/24 06/01/24 Rx intramuscular oil testosterone #10 mL (Depo-Testosterone) amlodipine 10 mg tablet 10 mg PO DAILY 06/01/24 07/11/24 History duloxetine 20 mg capsule,delayed 20 mg PO DAILY 06/01/24 07/11/24 History release levocetirizine 5 mg tablet (Xyzal) 5 mg PO DAILY 06/01/24 07/11/24 History metoprolol succinate 100 mg 100 mg PO DAILY 06/01/24 07/11/24 History tablet,extended release 24 hr [id number] 250 mg-dha 90 1 cap PO QPM 06/01/24 06/01/24 History mg-epa 160 lt-pzaf-lclg-zeax capsule (Ocuvite Adult 50 Plus) pseudoephedrine-ibuprofen 30 1 tab PO ONCE PRN 06/01/24 06/01/24 History mg-200 mg tablet (Advil Cold and Sinus) Allergies Allergy/AdvReac Type Severity Reaction Status Date / Time No Known Drug Allergies Allergy Verified 07/11/24 09:33 Exam Vital Signs (past 8 hours): - 07/11/24 09:49 Temperature 97.1 F L Pulse Rate 60 Respiratory Rate 16 Blood Pressure 156/78 H Pulse Oximetry 98 Oxygen Delivery Method Room Air Oxygen Delivery Method Room Air Narrative Exam Narrative: General adult man alert oriented no acute distress Chest nonlabored respiration Extremities warm well perfused Assessment & Plan Assessment and plan (1) Positive FIT (fecal immunochemical test): Status: Acute Assessment & Plan narrative: 79M pos FIT here for diagnostic colonoscopy. Technical details were discussed. Risks, benefits, alternatives explained. Risks including but not limited to myocardial infarction, aspiration, bleeding, pain, missed lesion, incomplete examination, need for further radiographic studies, intestinal injury, and need for major abdominal surgery were discussed. All questions were answered to their satisfaction, and they are in agreement with this plan. Time-Based Coding :: [TOTAL MINUTES] spent with patient and on the chart (including review of chart, obtaining history, exam, reviewing outside data, placing orders, documenting exam and treatment plan, and counseling patient) on [DATE].
[2024-07-11 10:41] VITALS: BP 125/72; PULSE 64; RESP 24; TEMP 36.8; O2SAT 93
--- NOTE | 2024-07-11 10:45 | P.OP.COLON_ITS ---
Operative Date/Time/Diagnoses Date of procedure: 07/11/24 Time of procedure: 10:45 Pre-op diagnosis: Positive fecal immunochemical test. History of colon cancer Post-op diagnosis: other (Colonic polyp x1) Procedure & Clinicians Study performed: Diagnostic colonoscopy Same procedure as scheduled: Yes Indications: History of colon cancer Positive fecal immunochemical test Surgeon: Rashad Cesar Procedure Notes Procedure in detail: The history and physical was performed/updated and the patient is ASA class is 2. The procedure was discussed in detail with the patient. Potential risks complications including infection, bleeding, missed diagnosis, perforation, need for surgery, and were explained. Their questions were answered and informed consent was obtained. Patient was brought to the procedure room and placed standard monitoring equipment. The patient's vital signs were monitored continuously throughout the entire procedure. Prior to starting time-out was performed. The patient was placed in the left lateral recumbent position. Procedural sedation was administered by anesthesia. Examination began with a thorough inspection of the perianal area there was no evidence of fissures, fistulae, external hemorrhoids or cutaneous malignancy. The colonoscopy scope was then placed into the anal canal and was advanced to the cecum, which was identified by the ileocecal valve, the appendiceal orifice and the confluence of the taenia. The scope was then slowly withdrawn examining colon thoroughly in all directions, irrigating it of any residual stool. The scope was retroflexed within the rectum The patient tolerated the procedure well. They will be discharged once criteria are met. The prep was of good/excellent quality. The withdrawl time was 9 minutes. FINDINGS * Sigmoid 5 mm polyp removed with cold snare * Moderate diverticulosis of distal colon Specimen(s): other (Sigmoid polyp) Impression: Colonic polyp x1 Post-procedure Recommendations: High fiber diet Plan for aftercare: Follow-up is dependent on pathology findings Disposition: same day surgery
[2024-07-11 10:46] VITALS: BP 128/69; PULSE 64; RESP 18; O2SAT 95
[2024-07-11 10:52] VITALS: BP 122/69; PULSE 60; RESP 16; TEMP 37.1; O2SAT 95
== END 2024-07-11 11:10 | disposition home or self-care (01) ==
PROVIDERS: PCP Internal Medicine; Referring Provider Surgery; Visit Provider Surgery
PROC: 0DJD8ZZ Inspection of Lower Intestinal Tract, Via Natural or Artificial Opening Endoscopic (ICD-10-PCS; CPT 45378; principal; 2024-07-11 10:15)
DX: Z12.11 Encounter for screening for malignant neoplasm of colon (principal); R19.5 Other fecal abnormalities; Z85.038 Personal history of other malignant neoplasm of large intestine; K57.30 Diverticulosis of large intestine without perforation or abscess without bleeding; D12.5 Benign neoplasm of sigmoid colon
CPT/HCPCS: 45385; J2704

== ENCOUNTER → 2024-09-04 13:00 | Outpatient (CLI) | payer MEDICARE, OTHER, SELFPAY | PROVIDERS: PCP Internal Medicine; Visit Provider Physician Assistant Medical | DX: S81.801A Unspecified open wound, right lower leg, initial encounter (principal) | CPT/HCPCS: 87070; 87077; 87147; 87186; 87205 ==

== ENCOUNTER → 2024-09-19 11:39 | Outpatient (CLI) | payer MEDICARE, OTHER, SELFPAY ==
[2024-09-19 12:45] LABS: Hematocrit 38.1 % (41-53); Hemoglobin 13.1 g/dL (13.5-17.5); Mean Corpuscular HGB Conc 34.4 % (30-36); Mean Corpuscular Hemoglobin 32.5 PG (26-34); Mean Corpuscular Volume 94.5 fL (80-100); Platelet Count 239 X10^3/uL (150-400); Red Blood Cell Count 4.03 X10^6/uL (4.5-5.9); Red Cell Distribution Width 12.7 % (11.6-14.8); White Blood Cell Count 8.1 X10^3/uL (4.5-11.0)
[2024-09-19 12:54] LABS: Appearance Urine UA CLEAR; Bilirubin Urine UA NEGATIVE (NEGATIVE); Color Urine UA YELLOW; Glucose Urine UA NEGATIVE (Negative); Ketones Urine UA NEGATIVE (NEGATIVE); Leukocyte Esterase Urine UA NEGATIVE (NEGATIVE); Nitrite Urine UA NEGATIVE (Negative); Occult Blood Urine UA NEGATIVE (Negative); Protein Urine UA NEGATIVE (Negative); Specific Gravity Urine UA 1.025 (1.000-1.035); Urobilinogen Urine UA 0.2 E.U./dL (0.2); pH Urine UA 5.5 (4.5-8.0)
[2024-09-19 13:07] LABS: Bacteria Urine Occasional (0-1); Culture Indicated Urine Cult Not Indicated; Mucus Urine 1+ (Negative); RBC Urine None Seen (0-5/HPF); Squamous Epithelial Cell Urine 0-1 /HPF (0-5/HPF); Urine Volume 10mL (spun); WBC Urine None Seen (0-5/HPF)
[2024-09-19 13:09] LABS: Alanine Aminotransferase 35 IU/L (<50); Albumin Globulin Ratio 1.7 (1.0-2.8); Alkaline Phosphatase 65 U/L (38-126); Aspartate Aminotransferase 31 IU/L (17-59); BUN Creatinine Ratio 24.4 (6-22); Bilirubin Total 0.5 mg/dL (0.2-1.3); Blood Urea Nitrogen 21 mg/dL (9-20); Calcium 9.5 mg/dL (8.4-10.2); Carbon Dioxide 29 mmol/L (22-32); Chloride 106 mmol/L (98-107); Cholesterol 135 mg/dL (140-199); Estimated Glomerular Filt Rate > 60 mL/min (>60); Globulin 2.3 g/dL (1.7-4.1); Glucose 96 mg/dL (80-110); HDL Cholesterol 35 mg/dL (40-60); HEMOLYSIS < 15 (0-50); LDL Cholesterol Calculated 45 mg/dL (<100); Potassium 4.6 mmol/L (3.4-5.1); Sodium 139 mmol/L (137-145); Total Protein 6.3 g/dL (6.3-8.2); Triglycerides 274 mg/dL (35-150)
[2024-09-19 13:36] LABS: Prostate Specific Antigen 0.918 ng/mL (0.10-4.00)
[2024-09-19 13:39] LABS: Testosterone 31.5 ng/dL (71.8-623)
== END ==
PROVIDERS: PCP Internal Medicine; Referring Provider Internal Medicine; Visit Provider Internal Medicine
DX: E78.2 Mixed hyperlipidemia (principal); R97.20 Elevated prostate specific antigen [PSA]; R79.89 Other specified abnormal findings of blood chemistry; N40.1 Benign prostatic hyperplasia with lower urinary tract symptoms
CPT/HCPCS: 36415; 80053; 80061; 81001; 84153; 84403; 85027

== ENCOUNTER → 2024-10-05 10:47 | Outpatient (CLI) | payer MEDICARE, OTHER, SELFPAY ==
--- NOTE | 2024-10-05 10:48 | DI.MRI.S_ITS ---
PROCEDURE: MR LUMBAR SPINE WO CON INDICATIONS: low back pain, sciatica TECHNIQUE: Noncontrast sagittal T1 spin echo and T2 fast echo, sagittal STIR, and T2 fast spin echo through the lumbar spine. In cases with scoliosis, additional coronal T2 fast spin echo may be performed. COMPARISON: [facility], MR, MR LUMBAR SPINE WITHOUT CONTRAST, 12/25/2021, 18:01. [facility], MR, MR LUMBAR SPINE WITHOUT CONTRAST, 02/06/2019, 15:37. [facility], MR, L-SPINE WITHOUT CONTRAST, 11/04/2015, 14:24. [facility], CT, CT ABDOMEN PELVIS W CON, 10/08/2023, 13:18. [facility], MR, L-SPINE WITHOUT CONTRAST, 02/16/2017, 20:23. FINDINGS: Image quality: Excellent. Alignment and Curvature: Mild levoconvex scoliotic curvature is noted. Minimal retrolisthesis can be seen at L2-L3 and L3-L4. Bone Marrow: Marrow is of normal overall signal. No acute vertebral body compression fractures. Spinal Cord: Conus medullaris terminates at the L1 level. Visualized cord demonstrates normal signal and size. Paraspinous Soft Tissues: No paravertebral masses. Water signal cysts can be seen at the superior pole of the right kidney. T12-L1: Moderate loss of disc height is seen. Loss of disc signal is seen. Moderate generalized disc bulge is seen. Reactive marrow endplate changes are seen, which are hyperintense on T1-weighted and T2-weighted imaging and most consistent with fatty metaplasia (Modic type II changes). Mild facet joint hypertrophy is seen. There is vznq-dy-foqvlays left-sided and no right-sided neural foraminal narrowing. No central canal narrowing is seen. No significant change from the prior images. L1-L2: At least moderate loss of disc height and disc signal can be seen. Reactive marrow endplate changes are seen, which are hyperintense on T1-weighted and T2-weighted imaging and most consistent with fatty metaplasia (Modic type II changes). Moderate generalized disc bulge is seen. There is a central disc osteophyte protrusion seen. Mild bilateral neural foraminal narrowing is seen. Mild to moderate central canal narrowing is seen. When comparison is made with the prior images, these findings are similar. L2-L3: At least moderate loss of disc height and disc signal can be seen. Reactive marrow endplate changes are seen anteriorly, which are hyperintense on T1-weighted and T2-weighted imaging and most consistent with fatty metaplasia (Modic type II changes). Moderate disc bulge is seen, which is slightly eccentric to the right. Mild facet joint hypertrophy is seen. There is moderate right-sided and mild left-sided neural foraminal narrowing. Mild central canal narrowing is seen. No significant change from the prior. L3-L4: Moderate loss of disc height is seen. Loss of disc signal is seen. Reactive marrow endplate changes are seen, which are hyperintense on T1-weighted and T2-weighted imaging and most consistent with fatty metaplasia (Modic type II changes). Moderate generalized disc bulge is seen. There is a mild central disc osteophyte protrusion. Mild facet joint hypertrophy is seen. There is moderate right-sided and at least moderate left-sided neural foraminal narrowing. Mild central canal narrowing is seen. When comparison is made with the prior images, these findings are similar. L4-L5: Moderate loss of disc height is seen. Loss of disc signal is seen. Reactive marrow endplate changes are seen, which are hyperintense on T1-weighted and T2-weighted imaging and most consistent with fatty metaplasia (Modic type II changes). Moderate disc bulge is seen, with a central disc osteophyte protrusion. There is a focal annular fissure seen posteriorly. Moderate facet joint hypertrophy is seen. There is at least moderate bilateral neural foraminal narrowing, left worse than right. There is a mild degree of compression upon the exiting left L4 nerve root. Mild central canal narrowing is seen. When comparison is made with the prior images, these findings are similar. L5-S1: Mild loss of disc height is seen. Loss of disc signal is seen. Mild generalized disc bulge is seen. Mild facet joint hypertrophy is seen. Mild bilateral neural foraminal narrowing is seen. Minimal central canal narrowing is seen. No significant change from the prior. IMPRESSION: Multiple levels of significant lumbar spine degenerative change can be seen, which are similar to the prior 2021 images. Dictated by: Ulises Fuentes M.D. on 10/05/2024 at 11:36 Approved by: Ulises Fuentes M.D. on 10/05/2024 at 11:43
== END ==
PROVIDERS: PCP Internal Medicine; Referring Provider Internal Medicine; Visit Provider Internal Medicine
DX: M47.816 Spondylosis without myelopathy or radiculopathy, lumbar region; M47.817 Spondylosis without myelopathy or radiculopathy, lumbosacral region; M54.40 Lumbago with sciatica, unspecified side
CPT/HCPCS: 72148

== ENCOUNTER 2025-03-29 07:09 | Emergency (ER) | payer MEDICARE, OTHER, SELFPAY ==
[2025-03-29] VITALS (10 sets, daily range): BP systolic 127–165; BP diastolic 66–81; PULSE 57–70; RESP 18–22; TEMP 36.6–36.8; O2SAT 92–95; BMI 39.0
--- NOTE | 2025-03-29 07:46 | DI.RAD.S_ITS ---
PROCEDURE: XR CHEST 1V INDICATIONS: Dyspnea TECHNIQUE: One view of the chest was acquired. COMPARISON: [facility], CR, XR CHEST 2V, 02/22/2020, 14:23. [facility], CR, XR CHEST 2V, 12/17/2019, 11:03. FINDINGS: Surgical changes and devices: None. Lungs and pleura: Left basilar opacity. Suspected small left pleural effusion. Peribronchial cuffing. Mediastinum: Mediastinal contours appear normal. Heart size is enlarged. Bones and chest wall: No suspicious bony lesions. Overlying soft tissues appear unremarkable. IMPRESSION: Small left pleural effusion with left basilar atelectasis/consolidation. Peribronchial cuffing, could represent infectious/inflammatory bronchitis or early pulmonary edema. Dictated by: Eliud De Paz M.D. on 03/29/2025 at 8:36 Approved by: Eliud De Paz M.D. on 03/29/2025 at 8:38
--- NOTE | 2025-03-29 07:48 | ED.SOB ---
HPI - SOB/Dyspnea General Chief Complaint: Shortness of Breath/Dyspnea Stated Complaint: SOB, Insomnia X 7 DAYS Time Seen by Provider: 03/29/25 07:34 Source: patient Mode of arrival: Ambulatory Limitations: physical limitation History of Present Illness HPI Narrative: patient here with . Complains 1 week of insomnia and shortness of breath. Denies denies any chest pain or palpitations. Denies any exertional chest pain. However he short of breath with his usual activities around the home and outside the home. he recently returned from [place] using the CPAP and states it worked well while vacationing. However when they return in the past week he feels the machine is not working as well. He did go and have it evaluated by Patricia, they said there was leaks around the mask. They gave him a new mask but did not test for function and he states it did not change for him. In addition, he has been feeling dizzy for the past 6 months. He did see his doctor Mar 06 2025 but no studies were done. He did see Otolaryngology for a swallowing problem and he mentioned it to the ENT provider about dizziness but no workup was done. fast exam is negative. Patient denies any slurred speech facial droop. No unilateral numbness tingling or weakness of the limbs. Patient does have appointment today with a neurosurgeon regarding spinal problems. Which is not new. 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 which is not new Related Data Home Medications ?Medication ?Instructions ?Recorded ?Confirmed [stool softener] 1 PO QDAY Constipation ##0 08/26/17 12/20/24 aspirin 81 mg chewable tablet 1 tab PO QDAY ##0 08/26/17 03/29/25 cholecalciferol (vitamin D3) 100 4,000 unit PO DAILY 12/17/19 03/29/25 mcg (4,000 unit) capsule losartan 50 mg tablet 50 mg PO DAILY 03/05/22 03/29/25 duloxetine 20 mg capsule,delayed 20 mg PO DAILY 06/01/24 03/29/25 release levocetirizine 5 mg tablet (Xyzal) 5 mg PO DAILY 06/01/24 03/29/25 metoprolol succinate 100 mg 100 mg PO DAILY 06/01/24 03/29/25 tablet,extended release 24 hr [id number] 250 mg-dha 90 1 cap PO QPM 06/01/24 03/29/25 mg-epa 160 ho-dolm-mttp-zeax capsule (Ocuvite Adult 50 Plus) pseudoephedrine-ibuprofen 30 1 tab PO ONCE 06/01/24 03/29/25 mg-200 mg tablet (Advil Cold and Sinus) pregabalin 150 mg capsule 150 mg PO BID 03/06/25 03/29/25 amlodipine 5 mg tablet 5 mg PO DAILY 03/29/25 03/29/25 Previous Rx's ?Medication ?Instructions ?Recorded atorvastatin 40 mg tablet 40 mg PO DAILY #90 tabs 12/30/18 Parking Permit... #1 ea 09/08/23 fluticasone propionate 50 1 spray intranasal DAILY #16 grams 11/04/23 mcg/actuation nasal spray,suspension (Flonase Allergy Relief) tramadol 50 mg tablet 50 mg PO DAILY PRN pain #30 tabs 09/19/24 testosterone cypionate 100 mg/mL 100 mg IM .d1svanm low 10/04/24 intramuscular oil testosterone #10 mL (Depo-Testosterone) tamsulosin 0.4 mg capsule (Flomax) 0.4 mg PO BID #180 caps 01/10/25 tirzepatide 2.5 mg/0.5 mL 2.5 mg (0.5 mL) SUBCUT QWEEK #2 mL 03/06/25 subcutaneous pen injector (Mounjaro) tirzepatide 5 mg/0.5 mL 5 mg (0.5 mL) SUBCUT QWEEK #2 mL 03/06/25 subcutaneous pen injector (Mounjaro) amoxicillin 875 mg-potassium 1 tab PO BID #14 tabs 03/29/25 clavulanate 125 mg tablet doxycycline monohydrate 100 mg 100 mg PO BID #14 caps 03/29/25 capsule Allergies Allergy/AdvReac Type Severity Reaction Status Date / Time No Known Drug Allergies Allergy Verified 03/29/25 07:15 Review of Systems Review of Systems Narrative: GENERAL: Negative chills, positivefatigue, malaise, negative fever, sweats. HEENT: Negative sinus pain, ear pain, sore throat RESPIRATORY: positive dyspnea, negativecough CARDIOVASCULAR: Negative chest pain, palpitations GASTROINTESTINAL: Negative vomiting, nausea, abdominal pain : Negative dysuria, frequency, hematuria MUSCULOSKELETAL: Negative muscle or bony pain SKIN: Negative rash, skin lesions NEUROLOGIC: Negative weakness, numbness, negative slurred speech negative facial droop, negative limb numbness tingling weakness. Positive dizziness ROS Unobtainable: All systems reviewed & are unremarkable except as noted in HPI and below Patient History Medical History (Updated 03/29/25 @ 12:26 by Mikal Hall MD) Severe obesity (BMI 35.0-35.9 with comorbidity) History of colonic polyps Positive FIT (fecal immunochemical test) Elevated PSA Benign essential tremor Venous (peripheral) insufficiency B12 deficiency Obstructive sleep apnea Generalized anxiety disorder Mixed hyperlipidemia Essential hypertension Low testosterone in male Primary insomnia (01/07/16) Social History marital status: household members: spouse lives independently: Yes occupational status: employed Smoking Status: Former smoker alcohol intake: current substance use type: marijuana Smoking Status: Former smoker tobacco type: cigarettes alcohol intake frequency: 0-2 drinks per day Alcohol type: wine and hard liquor Exam Narrative Exam Narrative: GENERAL: in no distress, not toxic not dyspneic HEAD: Normocephalic. EYES: Pupils equal round ENT: Mucous membranes moist. NECK: Trachea midline. CARDIOVASCULAR: Regular rate and rhythm RESPIRATORY: patient is speaking comfortably full sentences no respiratory distress. There is decreased lung sounds on the left base. Otherwise no wheezing rhonchi rales. GASTROINTESTINAL: Abdomen soft, non-tender EXTREMITIES: No gross deformities. BACK: No flank tenderness. NEURO: AOx4. Clear speechNo facial droop light touch intact bilateral face and hands with strong equal oncology technician. Negative pronator drift. Fast exam is negative. Patient does get dizzy when he sits up from supine position. But this is able to resolve staying still for short while. No dizziness with extraocular eye movements. Does get slightly dizzy with turning his head left and right. Iiowsj-gf-frai intact bilaterally. No nystagmus with eye movements. Horizontal or vertical. SKIN: Warm and dry PSYCH: Not anxious, is cooperative Initial Vital Signs Initial Vital Signs: Vital Signs Temperature 98.3 F 03/29/25 07:22 Pulse Rate 70 03/29/25 07:22 Respiratory Rate 19 03/29/25 07:22 Blood Pressure 160/72 H 03/29/25 07:22 Pulse Oximetry 92 03/29/25 07:22 Oxygen Delivery Method Room Air 03/29/25 07:22 Course Orders Ordered: ED Orders 03/29/25 07:46 XR chest 1V Stat EKG-12 Lead Stat 03/29/25 07:58 Complete Blood Count AUTO DIFF Stat Comprehensive Metabolic Panel Stat D Dimer Stat NT-proBNP (BNP-Adult 18+) Stat PTT Partial Thromboplastin Eladio Stat Prothrombin Time INR Stat Troponin & CK Cardiac Panel Stat 03/29/25 10:25 Respiratory Panel (Film Array) Stat Discontinued Medications Amoxicillin/Clavulanate Potassium (Amoxicillin/Clav 875/125 Mg) 1 tab PO NOW ONE Stop: 03/29/25 10:28 Last Admin: 03/29/25 11:08 Dose: 1 tab Documented By: MARGI Doxycycline Hyclate (Doxycycline Hyclate 100 Mg Tablet) 100 mg PO NOW ONE Stop: 03/29/25 10:28 Last Admin: 03/29/25 11:08 Dose: 100 mg Documented By: MARGI Vital Signs Vital signs: Vital Signs - 8 hr 03/29/25 07:22 03/29/25 08:01 03/29/25 08:09 Temperature 98.3 F Pulse Rate 70 64 63 Respiratory Rate 19 22 Blood Pressure 160/72 H Pulse Oximetry 92 93 92 Oxygen Delivery Method Room Air 03/29/25 08:09 03/29/25 08:30 03/29/25 08:30 Temperature Pulse Rate 58 L Respiratory Rate 19 Blood Pressure 165/75 H 149/67 H Pulse Oximetry 94 Oxygen Delivery Method 03/29/25 09:00 03/29/25 09:00 03/29/25 09:30 Temperature Pulse Rate 57 L Respiratory Rate 20 Blood Pressure 136/66 151/80 H Pulse Oximetry 94 Oxygen Delivery Method 03/29/25 09:30 03/29/25 10:00 03/29/25 10:00 Temperature Pulse Rate 61 60 Respiratory Rate 22 21 Blood Pressure 156/81 H Pulse Oximetry 92 93 Oxygen Delivery Method 03/29/25 10:30 03/29/25 10:30 03/29/25 11:00 Temperature Pulse Rate 57 L Respiratory Rate 18 Blood Pressure 161/77 H 156/80 H Pulse Oximetry 95 Oxygen Delivery Method 03/29/25 11:00 03/29/25 12:34 Temperature 98 F Pulse Rate 61 59 L Respiratory Rate 19 21 Blood Pressure 127/75 Pulse Oximetry 93 95 Oxygen Delivery Method Room Air MDM - SOB/Dyspnea Lab Data 03/29/25 07:58 03/29/25 07:58 Labs: Lab Results 03/29/25 03/29/25 Range/Units 07:58 10:25 WBC 9.0 (4.5-11.0) X10^3/uL RBC 4.56 (4.5-5.9) X10^6/uL Hgb 14.6 (13.5-17.5) g/dL Hct 43.3 (41-53) % MCV 95.0 (80-100) fL MCH 32.1 (26-34) PG MCHC 33.8 (30-36) % RDW 13.4 (11.6-14.8) % Plt Count 183 (150-400) X10^3/uL Neut % (Auto) 77.5 H (50-75) % Lymph % (Auto) 9.4 L (25-40) % [place] % (Auto) 9.0 (3-14) % Eos % (Auto) 3.5 (2-4) % Baso % (Auto) 0.6 (0-2) % Neut # (Auto) 7000 (4366-4364) /uL Lymph # (Auto) 800 L (6752-6177) /uL [place] # (Auto) 800 (0-900) /uL Eos # (Auto) 300 (0-450) /uL Baso # (Auto) 100 (0-100) /uL PT 11.7 (9.4-12.5) SECONDS INR 1.0 (0.9-1.3) APTT 37 H (25.1-36.5) SECONDS D-Dimer 377 (<500) ng/ml Sodium 138 (137-145) mmol/L Potassium 4.5 (3.4-5.1) mmol/L Chloride 103 (98-107) mmol/L Carbon Dioxide 29 (22-32) mmol/L BUN 20 (9-20) mg/dL Creatinine 0.84 (0.66-1.25) mg/dL Estimated GFR > 60 (>60) mL/min BUN/Creatinine Ratio 23.8 H (6-22) Glucose 101 H (70-99) mg/dL Calcium 9.0 (8.4-10.2) mg/dL Total Bilirubin 0.9 (0.2-1.3) mg/dL AST 26 (17-59) IU/L ALT 22 (<50) IU/L Alkaline Phosphatase 72 (38-126) U/L Total Creatine Kinase 95 (55-170) U/L Troponin I < 0.012 (0.01-0.034) ng/mL NT-Pro-B Natriuret Pep 118 (<450) pg/mL Total Protein 6.6 (6.3-8.2) g/dL Albumin 4.2 (3.5-5.0) g/dL Globulin 2.4 (1.7-4.1) g/dL Albumin/Globulin Ratio 1.8 (1.0-2.8) Chlamy pneumoniae PCR Not detected (Not Detect) Adenovirus (PCR) Not detected (Not Detect) B. pertussis DNA (PCR) Not detected (Not Detect) B.parapertussis DNA PCR Not detected (Not Detecte) Coronavirus OC43 (PCR) Not detected (Not Detect) Coronavirus HKU1 (PCR) Not detected (Not Detect) Coronavirus 229E (PCR) Not detected (Not Detect) SARS-CoV-2 (PCR) Not detected (Not Detecte) Coronavirus NL63 (PCR) Not detected (Not Detect) Human Metapneumovir PCR Not detected (Not Detect) Influenza Type A (PCR) Not detected (Not Detect) Influenza Type B (PCR) Not detected (Not Detect) M. pneumoniae (PCR) Not detected (Not Detect) Parainfluenza 1 (PCR) Not detected (Not Detect) Parainfluenza 2 (PCR) Not detected (Not Detect) Parainfluenza 3 (PCR) Not detected (Not Detect) Parainfluenza 4 (PCR) Not detected (Not Detect) RSV (PCR) Not detected (Not Detect) Entero/Rhino (PCR) Not detected (Not Detect) Imaging Data Chest x-ray: Radiologist's Impression: [address] [address] XRay Report Signed Patient: Silas Ram MR#: [id number] : 1945 Acct:[id number] Age/Sex: 80 / M Date of Service: 03/29/25 Loc: ED Accession Number: [id number] Procedure: XR chest 1V Ordering Provider: Mikal Hall MD PROCEDURE: XR CHEST 1V INDICATIONS: Dyspnea TECHNIQUE: One view of the chest was acquired. COMPARISON: [facility], CR, XR CHEST 2V, 02/22/2020, 14:23. [facility], CR, XR CHEST 2V, 12/17/2019, 11:03. FINDINGS: Surgical changes and devices: None. Lungs and pleura: Left basilar opacity. Suspected small left pleural effusion. Peribronchial cuffing. Mediastinum: Mediastinal contours appear normal. Heart size is enlarged. Bones and chest wall: No suspicious bony lesions. Overlying soft tissues appear unremarkable. IMPRESSION: Small left pleural effusion with left basilar atelectasis/consolidation. Peribronchial cuffing, could represent infectious/inflammatory bronchitis or early pulmonary edema. Dictated by: Eliud De Paz M.D. on 03/29/2025 at 8:36 Approved by: Eliud De Paz M.D. on 03/29/2025 at 8:38 MDM Narrative Medical decision making narrative: patient here with . Complains 1 week of insomnia and shortness of breath. Denies denies any chest pain or palpitations. Denies any exertional chest pain. However he short of breath with his usual activities around the home and outside the home. he recently returned from [place] using the CPAP and states it worked well while vacationing. However when they return in the past week he feels the machine is not working as well. He did go and have it evaluated by Patricia, they said there was leaks around the mask. They gave him a new mask but did not test for function and he states it did not change for him. In addition, he has been feeling dizzy for the past 6 months. He did see his doctor Mar 06 2025 but no studies were done. He did see Otolaryngology for a swallowing problem and he mentioned it to the ENT provider about dizziness but no workup was done. patient here with . Complains 1 week of insomnia and shortness of breath. Denies denies any chest pain or palpitations. Denies any exertional chest pain. However he short of breath with his usual activities around the home and outside the home. he recently returned from [place] using the CPAP and states it worked well while vacationing. However when they return in the past week he feels the machine is not working as well. He did go and have it evaluated by [facility], they said there was leaks around the mask. They gave him a new mask but did not test for function and he states it did not change for him. In addition, he has been feeling dizzy for the past 6 months. He did see his doctor Mar 06 2025 but no studies were done. He did see Otolaryngology for a swallowing problem and he mentioned it to the ENT provider about dizziness but no workup was done. After history and exam, Exam is reassuring. No breathing treatments as needed. I will ask respiratory therapist to evaluate for proper mask fitting and trial on 1 of our CPAP machines. CBC CMP BNP troponin EKG chest x-ray D-dimer will be ordered. MRI of the brain will be ordered. Given the acuity and chronicity of patient's dizziness, no CT head or CT angiogram indicated at this time. Likely not acute stroke MDM Medical records reviewed: patient is primary care visit March 06, 2025 Differential considered: Includes but not limited to TIA stroke CPAP equipment failure pneumonia CHF STEMI non-STEMI Lab Test results independently reviewed as above. Pertinent findings: WBC 9.0 hemoglobin 14.6 D-dimer 377 sodium 138 potassium 4.5 BUN 20 creatinine 0.84 GFR greater than 60 troponin less than 0.012 BNP 118 Independently reviewed EKG Normal sinus rhythm rate [address] elevation or depression Imaging studies independently reviewed: chest x-ray small left pleural effusion. With left basilar atelectasis consolidation /possible pneumonia Consultations: reviewed with Ivan respiratory therapist. He tried 1 of our CPAP mask and patient very much states it feels much better and effective. The 1 given to him by hiyalife yesterday in [place] does not work. He will try to find a comparable mask to the 1 here. They took a picture but to show [place] office for Written. 10:22 a.m.. I spoke with primary care provider, Dr. Johansen, he is aware of patient's dizziness, I did try attempt MRI of the brain but patient can not lay flat because he can not breathe due to body habitus. CT imaging would in kind of the same problem. Who will prescribe a sleep aid for patient. Re-evaluations: 10:30 a.m.. I reviewed with patient my discussion with Dr. Johansen. He will follow up with him regarding sleep medication. Patient and will look for a new mask that is the same when we tried here that he likes. Return precautions reviewed. They desire discharge home. Patient could not tolerate MRI because could not breathe lying flat. We are waiting for results of respiratory panel. X-ray does show a likely left lobe pneumonia. I will prescribe antibiotics for this. Discussion: Appropriate for discharge home. Exam is reassuring. Patient not requiring supplemental oxygen. Patient is source of shortness of breath is likely combination of pneumonia and equipment failure with his CPAP. Primary Care was contacted. I spoke with respiratory therapist, [place], he has spoken with his biomedical engineering supervisor THUY, we are able to send patient home with F and P simplus medium size mask that works for patient. Patient can not tolerate lying flat for MRI or CT scan imaging. Dizziness is not new. Is daily and chronic for the past 6 months. Family doctor will review and provide referrals, I spoke with him today. He will take care of the sleep medications as well. Diagnosis: CPAP equipment failure, chronic dizziness, community-acquired pneumonia Discharge Plan Departure Patient Disposition: Home Clinical Impression: Community acquired pneumonia Qualifiers: Laterality: left Lung location: lower lobe of lung Qualified Code(s): J18.9 - Pneumonia, unspecified organism Instructions: DI for Pneumonia -- Adult Activity Restrictions/Additional Instructions: Please use new mask provided to from our department. Please see your family doctor regarding workup and evaluation regarding your dizziness. You will likely need referral to Neurology Services. Antibiotics have been started for treating pneumonia. Prescription has been sent to your pharmacy to pickler helper today and continue. Return if worse if any questions or concerns.. Your family doctor will help prescribed you medication to help you sleep. Prescriptions: New doxycycline monohydrate 100 mg capsule 100 mg PO BID Qty: 14 0RF amoxicillin-pot clavulanate 875-125 mg tablet 1 tab PO BID Qty: 14 0RF No Action atorvastatin 40 mg tablet 40 mg PO DAILY Qty: 90 3RF cholecalciferol (vitamin D3) 4,000 unit capsule 4,000 unit PO DAILY aspirin 81 MG tablet,chewable 1 tab PO QDAY Qty: 0 [stool softener] 100 mg capsule 1 PO QDAY Qty: 0 testosterone cypionate [Depo-Testosterone] 100 mg/mL oil 100 mg IM .z1helwg Qty: 10 5RF tamsulosin [Flomax] 0.4 mg capsule 0.4 mg PO BID Qty: 180 3RF losartan 50 mg tablet 50 mg PO DAILY Patient Comments: take 1 tablet by mouth every evening (DME) Parking Permit... See Rx Instructions .Route .MEDSUPPLY Qty: 1 0RF Rx Instructions: As directed tramadol 50 mg tablet 50 mg PO DAILY PRN (Reason: pain) Qty: 30 5RF fluticasone propionate [Flonase Allergy Relief] 50 mcg/actuation spray,suspension 1 spray intranasal DAILY Qty: 16 0RF Rx Instructions: administer into each nostril pregabalin 150 mg capsule 150 mg PO BID Mounjaro 2.5 mg/0.5 mL pen injector 2.5 mg SUBCUT QWEEK Qty: 2 0RF Rx Instructions: for 4 weeks Mounjaro 5 mg/0.5 mL pen injector 5 mg SUBCUT QWEEK Qty: 2 5RF metoprolol succinate 100 mg tablet extended release 24 hr 100 mg PO DAILY duloxetine 20 mg capsule,delayed release(DR/EC) 20 mg PO DAILY levocetirizine [Xyzal] 5 mg tablet 5 mg PO DAILY Ocuvite Adult 50 Plus 250 mg (90 mg-160 mg) capsule 1 cap PO QPM Advil Cold and Sinus 30-200 mg tablet 1 tab PO ONCE amlodipine 5 mg tablet 5 mg PO DAILY Referrals: Humble Johansen MD [Primary Care Provider, Internal Medicine] Stand Alone Forms: Patient Portal/API
--- NOTE | 2025-03-29 08:00 | EKG_ITS ---
[address] [address] Test Date: 2025-03-29 Pat Name: Silas Ram Department: [facility] Room: Gender: Male Engine Inspector: WILL : 1945 Requested By: Order Number: [id number] Reading MD: Silas Busch Measurements Intervals [place] Rate: 62 P: 58 UT: 174 QRS: 3 QRSD: 72 T: 34 QT: 404 QTc: 410 Interpretive Statements Normal sinus rhythm Electronically Signed On 03-29-2025 19:01:20 PDT by Silas Busch
[2025-03-29 08:06] LABS: Add Manual Diff / Slide Review NO; Basophils Absolute Auto 100 /uL (0-100); Basophils Percent Auto 0.6 % (0-2); Eosinophils Absolute Auto 300 /uL (0-450); Eosinophils Percent Auto 3.5 % (2-4); Hematocrit 43.3 % (41-53); Hemoglobin 14.6 g/dL (13.5-17.5); Lymphocytes Absolute Auto 800 /uL (1100-4500); Lymphocytes Percent Auto 9.4 % (25-40); Mean Corpuscular HGB Conc 33.8 % (30-36); Mean Corpuscular Hemoglobin 32.1 PG (26-34); Monocytes Absolute Auto 800 /uL (0-900); Neutrophils Absolute Auto 7000 /uL (1500-7000); Neutrophils Percent Auto 77.5 % (50-75); Platelet Count 183 X10^3/uL (150-400); Red Blood Cell Count 4.56 X10^6/uL (4.5-5.9); Red Cell Distribution Width 13.4 % (11.6-14.8)
[2025-03-29 08:13] LABS: Prothrombin Time 11.7 SECONDS (9.4-12.5)
[2025-03-29 08:15] LABS: D Dimer 377 ng/ml (<500)
[2025-03-29 08:16] LABS: PTT Partial Thromboplastin Tim 37 SECONDS (25.1-36.5)
[2025-03-29 08:20] LABS: Alanine Aminotransferase 22 IU/L (<50); Albumin 4.2 g/dL (3.5-5.0); Albumin Globulin Ratio 1.8 (1.0-2.8); Alkaline Phosphatase 72 U/L (38-126); Aspartate Aminotransferase 26 IU/L (17-59); BUN Creatinine Ratio 23.8 (6-22); Bilirubin Total 0.9 mg/dL (0.2-1.3); Blood Urea Nitrogen 20 mg/dL (9-20); Carbon Dioxide 29 mmol/L (22-32); Chloride 103 mmol/L (98-107); Creatine Kinase 95 U/L (55-170); Estimated Glomerular Filt Rate > 60 mL/min (>60); Globulin 2.4 g/dL (1.7-4.1); Glucose 101 mg/dL (70-99); HEMOLYSIS < 15 (0-50); Potassium 4.5 mmol/L (3.4-5.1); Sodium 138 mmol/L (137-145); Total Protein 6.6 g/dL (6.3-8.2)
[2025-03-29 08:29] LABS: NT-proBNP (BNP-Adult 18+) 118 pg/mL (<450)
[2025-03-29 08:31] LABS: Troponin I < 0.012 ng/mL (0.01-0.034)
[2025-03-29] MEDS: DOXYCYCLINE HYCLATE 100 MG TABLET PO (11:08)
[2025-03-29] MEDS: AMOXICILLIN/CLAV 875/125 MG 1 TAB PO (11:08)
--- NOTE | 2025-03-29 11:36 | PC.NURSE ---
Pt arrived to ED today because he has been having consistent SOB and difficulty using cpap machine at home since returning from vacation in [place]. Pt states that he feels like his cpap machine is not work properly and contacted [facility] and they said there were leaks in the mask and gave pt replacement. Pt states that he still feels as though his situation has not improved. Pt also reports feeling dizzy intermittently for 6 months. Pt a&Ox4 and does not appear to be in any acute respiratory distress. RT called to bedside for pt evaluation. Diminished breath sounds on left.
[2025-03-29 12:33] LABS: Adenovirus Not Detected (Not Detect); B. parapertussis Not Detected (Not Detecte); Bordetella pertussis Not Detected (Not Detect); Chlamydophila pneumoniae Not Detected (Not Detect); Coronavirus 229E Not Detected (Not Detect); Coronavirus HKU1 Not Detected (Not Detect); Coronavirus NL 63 Not Detected (Not Detect); Coronavirus OC43 Not Detected (Not Detect); Human Metapneumovirus Not Detected (Not Detect); Human Rhinovirus/Enterovirus Not Detected (Not Detect); Influenza A Not Detected (Not Detect); Influenza B Not Detected (Not Detect); Mycoplasma pneumoniae Not Detected (Not Detect); Parainfluenza Virus 1 Not Detected (Not Detect); Parainfluenza Virus 2 Not Detected (Not Detect); Parainfluenza Virus 3 Not Detected (Not Detect); Parainfluenza Virus 4 Not Detected (Not Detect); Respiratory Syncytial Virus Not Detected (Not Detect); SARS- CoV-2 Not Detected (Not Detecte)
== END 2025-03-29 12:35 | disposition home or self-care (01) ==
PROVIDERS: Emergency Provider Emergency Medicine; PCP Internal Medicine
DX: J18.9 Pneumonia, unspecified organism (principal); G47.00 Insomnia, unspecified; R42 Dizziness and giddiness
CPT/HCPCS: 36415; 71045; 80053; 82550; 83880; 84484; 85025; 85379; 85610; 85730; 87633; 93005; 99284

== ENCOUNTER → 2025-04-18 10:12 | Outpatient (CLI) | payer MEDICARE, OTHER, SELFPAY ==
--- NOTE | 2025-04-18 10:16 | DI.CT.S_ITS ---
PROCEDURE: CT SINUS SCREEN WO CON INDICATIONS: recurrent sinus infections/ dizziness TECHNIQUE: Noncontrast 3.0 mm axial images acquired from the frontal sinuses to the mid- sella, with coronal and sagittal reformats. For radiation dose reduction, the following was used: automated exposure control, adjustment of mA and/or kV according to patient size. COMPARISON: [facility], CT, CT SINUS SCREEN WO CON, 02/21/2021, 10:10. FINDINGS: Maxillary Sinuses: Minimal fluid in the left maxillary sinus with air-fluid level. No osseous remodeling. Right maxillary sinus unremarkable. Ethmoid Air Cells: No bony remodeling or destruction. Sinuses are clear. Sphenoid Sinuses: No bony remodeling or destruction. Sinuses are clear. Frontal Sinuses: No bony remodeling or destruction. Sinuses are clear. Aplastic left frontal sinus Ostiomeatal Complexes: Ostiomeatal complexes are patent. No Geovany cells. Miscellaneous: Visualized intra-orbital contents are normal. No franci bullosa or paradoxical turbinate curvature. No nasal septal deviation. IMPRESSION: Air-fluid level in the left maxillary sinus could reflect acute sinusitis. No evidence of mucosal thickening or osseous remodeling throughout the exam Approved by: William Matthews M.D. on 04/19/2025 at 11:55
== END ==
LOC: CT 10:13
PROVIDERS: PCP Internal Medicine; Referring Provider Internal Medicine; Visit Provider Internal Medicine
DX: J32.4 Chronic pansinusitis (principal); R42 Dizziness and giddiness
CPT/HCPCS: 70486

== ENCOUNTER → 2025-05-10 09:04 | Outpatient (CLI) | payer MEDICARE, OTHER, SELFPAY ==
--- NOTE | 2025-05-10 09:05 | DI.RAD.S_ITS ---
PROCEDURE: XR CHEST 2V INDICATIONS: chf TECHNIQUE: 2 views of the chest were acquired. COMPARISON: [facility], CR, XR CHEST 1V, 03/29/2025, 8:01. [facility], CR, XR CHEST 2V, 02/22/2020, 14:23. FINDINGS: Surgical changes and devices: None. Lungs and pleura: Lungs are chronically mildly abnormal with pulmonary hyperexpansion and a chronic interstitial prominence. Currently the interstitial prominence is increased consistent with mild CHF. No pleural effusions or pneumothorax. Mediastinum: Mediastinal contours are normal. Heart size is mildly enlarged. Bones and chest wall: No suspicious bony abnormalities. Soft tissues appear unremarkable. IMPRESSION: Chronic pulmonary hyperexpansion, presumed COPD. Diaphragms are flattened, as has been previously the case on the lateral view. Mild cardiomegaly, suspect chronic interstitial prominence is currently accentuated by mild CHF. No pleural effusions or pneumonia seen. Dictated by: Yony Hyman M.D. on 05/10/2025 at 9:52 Approved by: Yony Hyman M.D. on 05/10/2025 at 9:53
[2025-05-10 10:20] LABS: Hemoglobin A1C% w Est Avg Glu 5.2 % (4.0-6.0)
[2025-05-10 10:29] LABS: Alanine Aminotransferase 23 IU/L (<50); Albumin 4.3 g/dL (3.5-5.0); Albumin Globulin Ratio 1.7 (1.0-2.8); Alkaline Phosphatase 75 U/L (38-126); Blood Urea Nitrogen 21 mg/dL (9-20); Calcium 9.3 mg/dL (8.4-10.2); Carbon Dioxide 26 mmol/L (22-32); Chloride 106 mmol/L (98-107); Cholesterol 113 mg/dL (140-199); Estimated Glomerular Filt Rate > 60 mL/min (>60); Globulin 2.6 g/dL (1.7-4.1); Glucose 84 mg/dL (70-99); HDL Cholesterol 47 mg/dL (40-60); HEMOLYSIS < 15 (0-50); Potassium 4.6 mmol/L (3.4-5.1); Sodium 141 mmol/L (137-145); Total Protein 6.9 g/dL (6.3-8.2); Triglycerides 286 mg/dL (35-150)
[2025-05-10 10:35] LABS: NT-proBNP (BNP-Adult 18+) 91 pg/mL (<450)
[2025-05-10 10:57] LABS: TSH w/ Reflex to FT4 2.35 uIU/mL (0.47-4.68)
[2025-05-10 12:28] LABS: Hematocrit 43.9 % (41-53); Hemoglobin 14.9 g/dL (13.5-17.5); Mean Corpuscular HGB Conc 33.9 % (30-36); Mean Corpuscular Hemoglobin 31.7 PG (26-34); Mean Corpuscular Volume 93.6 fL (80-100); Platelet Count 195 X10^3/uL (150-400)
== END ==
PROVIDERS: PCP Internal Medicine; Referring Provider Internal Medicine; Visit Provider Internal Medicine
DX: J18.9 Pneumonia, unspecified organism (principal); I51.7 Cardiomegaly; I50.22 Chronic systolic (congestive) heart failure; N40.1 Benign prostatic hyperplasia with lower urinary tract symptoms; E78.2 Mixed hyperlipidemia
CPT/HCPCS: 36415; 71046; 80053; 80061; 83036; 83880; 84443; 85027

== ENCOUNTER → 2025-05-15 12:33 | Outpatient (CLI) | payer MEDICARE, OTHER, SELFPAY ==
--- NOTE | 2025-05-15 12:35 | DI.ECHO.S_ITS ---
[facility] +---------+ [facility] : : [address] : : [place] : : [id number] : : Phone: [phone] Echocardiogram Report + + :Name: DEBBIE VIEYRA Study Date: 05/15/2025 Height: 72 in : :Hospital ReadingLocation: Weight: 265 lb : : Gender: Male BSA: 2.4 m2 : :: 1945 Age: 80 yrs BP: 114/73 mmHg: :Reason For Study: CONGESTIVE HEAT FAILURE : :Ordering Physician: CALVIN, : :SEBASTIAN Performed By: Flory Mckeon : :Referring: SEBASTIAN SIMPSON : + + Interpretation Summary The ejection fraction is estimated to be 60-65%. The right ventricular systolic pressure is estimated to be at least 32 mmHg based on an estimated right atrial pressure of 3 mm Hg. There is mild tricuspid regurgitation. Compared to the prior echo exam, there has been a decrease in TR severity. Procedure: A two-dimensional transthoracic echocardiogram with color flow and Doppler was performed. The study quality was technically difficult. Comparison is made with the echocardiogram of 02/10/2024. The patient was in sinus bradycardia with heart rates between 58-74 bpm during the exam. Left Ventricle: The left ventricle is normal in size. There is normal left ventricular wall thickness. The ejection fraction is estimated to be 60-65%. Left ventricular wall motion is normal. Grade I diastolic dysfunction with normal left atrial pressure. Right Ventricle: The right ventricle is not well visualized. Atria: The left atrial size is normal. Right atrial size is normal. There is no Doppler evidence for an interatrial shunt. Mitral Valve: The mitral valve leaflets appear to open well. There is trace mitral regurgitation. Aortic Valve: The aortic valve is trileaflet. The aortic valve is normal in structure but functionally abnormal. There is no aortic valve stenosis. No aortic regurgitation is present. Tricuspid Valve: The tricuspid valve leaflets are thin and pliable. There is mild tricuspid regurgitation. The right ventricular systolic pressure is estimated to be at least 32 mmHg based on an estimated right atrial pressure of 3 mm Hg. Compared to the prior echo exam, there has been a decrease in TR severity. Pulmonic Valve: The pulmonic valve leaflets are thin and pliable; valve motion is normal. There is mild pulmonic regurgitation. Great Vessels: The aortic root is normal size. The ascending aorta is mildly enlarged. The IVC is of normal diameter and collapses greater than 50% with a sniff. This suggests a low right atrial pressure of 3 mm Hg. Pericardium/ Pleura There is no pericardial effusion. There is no pleural effusion. MMode/2D Measurements & Calculations LVIDd: 5.1 cm LVOT diam: 2.0 cm LVIDs: 3.2 cm Ao root diam: 3.8 cm FS: 37.0 % asc Aorta Diam: 4.0 cm IVSd: 1.0 cm Ao Arch Diam (Prox Trans): 3.7 cm LVPWd: 0.95 cm LV hull. diameter/BSA (cm/m^2): 2.1 LV sys. diameter/BSA (cm/m^2): 1.3 LA A2 area: 21.9 cm2 RA long axis: 5.3 cm LA A4 area: 14.3 cm2 RA area: 15.4 cm2 LA length (vol): 5.6 cm RA vol: 37.9 ml LA vol: 47.2 ml RA : 15.8 ml/m2 LA vol index: 19.7 ml/m2 IVC diam: 1.7 cm TAPSE: 1.7 cm Doppler Measurements & Calculations Ao V2 max: 169.7 cm/sec LVOT Max Wai: 120.2 cm/sec Ao V2 mean: 121.3 cm/sec LV V1 max P.8 mmHg Ao max P.5 mmHg LV V1 VTI: 25.2 cm Ao mean P.4 mmHg LAYLA(I,D): 2.2 cm2 Ao V2 VTI: 35.3 cm LAYLA(V,D): 2.1 cm2 sev ratio: 0.71 LAYLA indexed to BSA (cm^2/m^2): 0.90 MV E max wai: 56.1 cm/sec TR max wai: 270.2 cm/sec MV A max wai: 90.6 cm/sec TR max P.3 mmHg MV E/A: 0.62 PA V2 max: 78.0 cm/sec Med Peak E' Wai: 4.8 cm/sec PA V2 mean: 56.4 cm/sec E/E' med: 11.6 PA mean P.4 mmHg Lat Peak E' Wai: 6.7 cm/sec PA pr(Accel): 42.2 mmHg E/E' lat: 8.3 E/e' average: 10.0 MV dec time: 0.25 sec SV(LVOT): 76.4 ml Reading Physician:02:08 PM
== END ==
PROVIDERS: PCP Internal Medicine; Referring Provider Internal Medicine; Visit Provider Internal Medicine
DX: I07.1 Rheumatic tricuspid insufficiency (principal); I50.22 Chronic systolic (congestive) heart failure; I77.89 Other specified disorders of arteries and arterioles
CPT/HCPCS: 93306

== ENCOUNTER → 2025-05-30 13:25 | Outpatient (CLI) | payer MEDICARE, OTHER, SELFPAY | PROVIDERS: PCP Internal Medicine; Referring Provider Internal Medicine; Visit Provider Internal Medicine | DX: R06.09 Other forms of dyspnea (principal); Z87.891 Personal history of nicotine dependence; R94.2 Abnormal results of pulmonary function studies | CPT/HCPCS: 94060; 94726; 94729 ==